=== PATIENT | female | born 1955 | race Caucasian/White ===

== ENCOUNTER 2016-04-25 10:10 | Outpatient (CLI) | payer MEDICARE, OTHER ==
[~2016-04-25 10:10] MED LIST: ACET-868 PO; ALLO100T PO; ASCO500T9 PO; ASPI-991 PO; CALC-15 PO; CARV25TA2 PO; CIPROFLOXACIN HCL PO; CYCL-343 PO; FERR-58 PO; FURO40TA5 PO; HYDR-4076 PO; INSU100I14 SQ; INSU100I19 SQ; ISON300T4 PO; LIDO30AD10 TP; METF10002 PO; ONDA4TAB8 SL; PANT40TA4 PO; POTA10TA15 PO; PRAM0.253 PO; PRED5TAB PO; RXVAN XX; SERT25TA5 PO; TRAM50TA PO; ZINC220C6 PO; ZOLP5TAB7 PO
== END 2016-04-25 23:59 ==
LOC: WOU 10:10
PROVIDERS: ATTEND Podiatrist Foot & Ankle Surgery
DX: E11.621 Type 2 diabetes mellitus with foot ulcer (principal); L97.422 Non-pressure chronic ulcer of left heel and midfoot with fat layer exposed; L08.89 Other specified local infections of the skin and subcutaneous tissue; B95.61 Methicillin susceptible Staphylococcus aureus infection as the cause of diseases classified elsewhere; Z87.891 Personal history of nicotine dependence; M06.9 Rheumatoid arthritis, unspecified; D46.9 Myelodysplastic syndrome, unspecified; R06.02 Shortness of breath; R07.9 Chest pain, unspecified; I25.10 Atherosclerotic heart disease of native coronary artery without angina pectoris; I11.0 Hypertensive heart disease with heart failure; I50.9 Heart failure, unspecified; Z95.1 Presence of aortocoronary bypass graft; Z79.899 Other long term (current) drug therapy; E78.5 Hyperlipidemia, unspecified
CPT/HCPCS: 11042; A6402

== ENCOUNTER 2016-04-25 11:31 | Emergency (ER) | payer MEDICARE, OTHER | END 2016-04-25 16:55 | disposition left against medical advice (07) | LOC: ER 11:33 | DX: Z53.21 Procedure and treatment not carried out due to patient leaving prior to being seen by health care provider (principal) | CPT/HCPCS: 87070-TC; 87075-TC; 87186-TC ==

== ENCOUNTER 2016-05-02 09:59 | Outpatient (CLI) | payer MEDICARE, OTHER ==
[2016-05-02] MEDS ORDERED: CIPR500T5 PO (16:39)
[2016-05-02] MEDS ORDERED: GUAI-177 PO (16:39)
[2016-05-02] MEDS ORDERED: METF500T4 PO (16:39)
[2016-05-02] MEDS ORDERED: SULF1TAB48 PO (16:39)
[2016-05-02] MEDS ORDERED: MULT-659 PO (16:39)
[2016-05-02] MEDS ORDERED: HYDR-3326 PO (16:39)
[2016-05-02] MEDS ORDERED: MAG30ORA PO (16:39)
[2016-05-02] MEDS ORDERED: CALC-108 PO (16:39)
[2016-05-02] MEDS ORDERED: INSU100V27 SQ (16:39)
[2016-05-02] MEDS ORDERED: ONDA-25 PO (16:39)
[2016-05-02] MEDS ORDERED: MAGN400O6 PO (16:39)
[2016-05-02] MEDS ORDERED: ASPI81TA2 PO (16:39)
== END 2016-05-02 23:59 ==
LOC: WOU 09:59
PROVIDERS: ATTEND Podiatrist Foot & Ankle Surgery
DX: E11.621 Type 2 diabetes mellitus with foot ulcer (principal); L97.422 Non-pressure chronic ulcer of left heel and midfoot with fat layer exposed; R60.0 Localized edema; B95.62 Methicillin resistant Staphylococcus aureus infection as the cause of diseases classified elsewhere; Z87.891 Personal history of nicotine dependence; E11.51 Type 2 diabetes mellitus with diabetic peripheral angiopathy without gangrene; Z95.1 Presence of aortocoronary bypass graft; E78.5 Hyperlipidemia, unspecified; R05 Cough; I11.0 Hypertensive heart disease with heart failure; I50.9 Heart failure, unspecified; D46.9 Myelodysplastic syndrome, unspecified; I25.10 Atherosclerotic heart disease of native coronary artery without angina pectoris; R06.02 Shortness of breath; L03.116 Cellulitis of left lower limb
CPT/HCPCS: 11042; A6402

== ENCOUNTER 2016-05-02 11:48 | Inpatient (IN) | payer MEDICARE, OTHER ==
[~2016-05-02] VITALS: Ht 170.2 cm; Wt 77.1 kg
[2016-05-02] MEDS ORDERED: IPRATROPIUM NEB FS 0.5 MG/2.5 ML AMPUL.NEB NEB ONE (14:30)
[2016-05-02] MEDS ORDERED: ALBUTEROL FS 2.5 MG/3 ML VIAL.NEB NEB ONE (14:30)
[2016-05-02 14:45] LABS: ANION GAP 10 (5-14); CALCIUM, SERUM 9.8 mg/dL (8.5-10.1); CARBON DIOXIDE 30 mmol/L (21-32); CHLORIDE 102 mmol/L (98-107); CREATININE 1.3 mg/dL (0.6-1.3); GFR 42 mL/min (>60); GLUCOSE 100 mg/dL (74-106); POTASSIUM 4.6 mmol/L (3.5-5.1); SODIUM SERUM 137 mmol/L (136-145); UREA NITROGEN, BLOOD 30 mg/dL (7-18)
[2016-05-02] MEDS ORDERED: ALBUTEROL FS 2.5 MG/3 ML VIAL.NEB ONE ×2 (14:46→15:42)
[2016-05-02 14:53] LABS: TROPONIN I < 0.017 ng/mL (0.00-0.056)
[2016-05-02 14:54] LABS: BASOPHILS % (AUTO) 0.3 % (0.0-2.0); DIFF TOTAL % 100 %; EOSINOPHILS # (AUTO) 0.1 /CMM (0.0-0.7); EOSINOPHILS % (AUTO) 1.2 % (0.0-6.0); HEMATOCRIT 33 % (33-45); HEMOGLOBIN 11.2 g/dL (11.5-14.8); LYMPHOCYTES # (AUTO) 1.4 /CMM (0.8-4.8); LYMPHOCYTES % (AUTO) 22.2 % (20.0-44.0); MEAN CORPUSCULAR HEMOGLOBIN 38 PG (26.0-33.0); MEAN CORPUSCULAR HGB CONC 34 g/dl (31.0-36.0); MEAN CORPUSCULAR VOLUME 113 fL (82-100); MONOCYTES # (AUTO) 0.6 /CMM (0.1-1.30); MONOCYTES % (AUTO) 8.9 % (2.0-12.0); NEUTROPHILS # (AUTO) 4.2 /CMM (1.8-8.9); NEUTROPHILS % (AUTO) 67.4 % (43.0-81.0); PLATELET COUNT (AUTO) 224 /CMM (150-450); RED BLOOD CELL COUNT(AUTO) 2.93 MIL/uL (4.0-5.2); WHITE BLOOD COUNT (AUTO) 6.2 K/uL (4.3-11.0)
[2016-05-02 14:57] LABS: ALANINE AMINOTRANSFERASE 24 U/L (12-78); ALBUMIN 3.7 g/dL (3.4-5.0); ASPARTATE AMINOTRANSFERASE 23 U/L (15-37); BILIRUBIN,DIRECT 0.1 mg/dL (0.0-0.2); BILIRUBIN,TOTAL 0.4 mg/dL (0.2-1.0); INDIRECT BILIRUBIN 0.3 mg/dL (0.0-1.1); TOTAL PROTEIN, SERUM 7.6 g/dL (6.4-8.2)
[2016-05-02] MEDS ORDERED: ALBUTEROL FS 2.5 MG/0.5 ML VIAL.NEB NEB ONE (15:30)
[2016-05-02] MEDS ORDERED: predniSONE 20 MG TABLET ONE (15:30)
[2016-05-02] MEDS ORDERED: predniSONE 20 MG TABLET PO ONE (15:30)
[2016-05-02] MEDS ORDERED: FUROSEMIDE 20 MG/2 ML VIAL ONE (16:29)
[2016-05-02] MEDS ORDERED: FUROSEMIDE 20 MG/2 ML VIAL IV ONE (16:30)
[2016-05-02 16:34] LABS: BAND % (MANUAL) 1 % (0.0-5.0); EOSINOPHILS % (MANUAL) 1 % (0-4); LYMPHOCYTES % (MANUAL) 21 % (16-48)
[2016-05-02 16:35] LABS: ANISOCYTOSIS 1+; PLATELET ESTIMATE ADEQUATE
[2016-05-02] MEDS ORDERED: SULF1TAB48 PO (16:39)
[2016-05-02] MEDS ORDERED: MAGN400O6 PO (16:39)
[2016-05-02] MEDS ORDERED: CIPR500T5 PO (16:39)
[2016-05-02] MEDS ORDERED: CALC-108 PO (16:39)
[2016-05-02] MEDS ORDERED: METF500T4 PO (16:39)
[2016-05-02] MEDS ORDERED: ONDA-25 PO (16:39)
[2016-05-02] MEDS ORDERED: INSU100V27 SQ (16:39)
[2016-05-02] MEDS ORDERED: ASPI81TA2 PO (16:39)
[2016-05-02] MEDS ORDERED: GUAI-177 PO (16:39)
[2016-05-02] MEDS ORDERED: MULT-659 PO (16:39)
[2016-05-02] MEDS ORDERED: MAG30ORA PO (16:39)
[2016-05-02] MEDS ORDERED: HYDR-3326 PO (16:39)
[2016-05-02] MEDS ORDERED: ACETAMINOPHEN 325 MG TABLET PO PRN (18:00)
[2016-05-02] MEDS: PANTOPRAZOLE 40 MG TABLET.DR PO SCH (18:00)
[2016-05-02] MEDS ORDERED: FUROSEMIDE 40 MG TABLET PO SCH (18:00)
[2016-05-02] MEDS ORDERED: CYCLOBENZAPRINE 10 MG TABLET PO PRN (18:00)
[2016-05-02] MEDS ORDERED: hydrALAZINE HCL 25 MG TABLET PO PRN (18:00)
[2016-05-02] MEDS ORDERED: MAG HYDROX/AL HYDROX/SIMETH 30 ML UDC PO PRN ×2 (18:00)
[2016-05-02] MEDS ORDERED: Z GUARD REMEDY 2 OZ OINT TP PRN (18:00)
[2016-05-02] MEDS ORDERED: ONDANSETRON HCL/PF 4 MG/2 ML VIAL IVP PRN (18:00)
[2016-05-02] MEDS ORDERED: PANTOPRAZOLE 40 MG TABLET.DR PO SCH (18:00)
[2016-05-02] MEDS ORDERED: ZOLPIDEM TARTRATE 5 MG TABLET PO PRN ×2 (18:00)
[2016-05-02] MEDS ORDERED: HYDROCODONE/APAP 5/325MG 1 EACH TABLET PO PRN (18:00)
[2016-05-02] MEDS ORDERED: MAGNESIUM HYDROXIDE 30 ML UDC PO PRN ×2 (18:00)
[2016-05-02 18:20] VITALS: BP 151/74
[2016-05-02] MEDS: BLOOD SUGAR DIAGNOSTIC 1 EACH STRIP IN SCH ×2 (18:30→22:18)
[2016-05-02] MEDS ORDERED: DEXTROSE 50%-WATER 50 ML DISP.SYRIN IV PRN (18:30)
[2016-05-02 20:00] VITALS: BP 144/80
[2016-05-02 20:12] VITALS: BP 144/80
[2016-05-02] MEDS: ZINC SULFATE 220 MG CAPSULE PO SCH (21:00)
[2016-05-02] MEDS: predniSONE 5 MG TABLET PO SCH (21:00)
[2016-05-02] MEDS: ASPIRIN 81 MG TAB.CHEW PO SCH (21:00)
[2016-05-02] MEDS: SERTRALINE HCL 25 MG TABLET PO SCH (21:00)
[2016-05-02] MEDS: POTASSIUM CHLORIDE 10 MEQ TABLET.SA PO SCH (21:00)
[2016-05-02] MEDS: FUROSEMIDE 40 MG/4 ML VIAL IV SCH ×2 (21:00→21:56)
[2016-05-02] MEDS: ALLOPURINOL 100 MG TABLET PO SCH (21:00)
[2016-05-02] MEDS: ISONIAZID (300 MG) 300 MG TABLET PO SCH (21:00)
[2016-05-02] MEDS: CARVEDILOL 12.5 MG TABLET PO SCH (21:53)
[2016-05-02] MEDS: PRAMIPEXOLE DI-HCL 0.25 MG TABLET PO SCH (21:55)
[2016-05-02] MEDS: HYDROCODONE/APAP 5/325MG 1 EACH TABLET PO PRN (22:12)
[2016-05-02] MEDS: *INSULIN REGULAR(HUMULIN R)HUM 100 UNIT/ML VIAL SQ PRN (22:20)
[2016-05-02] MEDS: INSULIN DETEMIR 100 UNIT/ML CARTRIDGE SQ SCH (22:25)
[2016-05-03] MEDS: ALBUTEROL FS 2.5 MG/0.5 ML VIAL.NEB NEB SCH ×6 (00:04→19:49)
[2016-05-03] MEDS: IPRATROPIUM NEB FS 0.5 MG/2.5 ML AMPUL.NEB NEB SCH ×6 (00:04→19:48)
[2016-05-03] MEDS: PANTOPRAZOLE 40 MG TABLET.DR PO SCH (06:24)
[2016-05-03] MEDS: PRAMIPEXOLE DI-HCL 0.25 MG TABLET PO SCH ×3 (06:24→21:11)
[2016-05-03] MEDS: BLOOD SUGAR DIAGNOSTIC 1 EACH STRIP IN SCH ×4 (06:24→21:39)
[2016-05-03] MEDS: INSULIN REGULAR, HUMAN 100 UNIT/ML 3 ML VIAL SQ PRN (06:31)
[2016-05-03 06:37] LABS: BASOPHILS % (AUTO) 0.3 % (0.0-2.0); DIFF TOTAL % 100 %; EOSINOPHILS % (AUTO) 0.1 % (0.0-6.0); HEMATOCRIT 31 % (33-45); HEMOGLOBIN 10.4 g/dL (11.5-14.8); LYMPHOCYTES % (AUTO) 17.4 % (20.0-44.0); MEAN CORPUSCULAR HEMOGLOBIN 38 PG (26.0-33.0); MEAN CORPUSCULAR HGB CONC 34 g/dl (31.0-36.0); MEAN CORPUSCULAR VOLUME 112 fL (82-100); MONOCYTES # (AUTO) 0.3 /CMM (0.1-1.30); MONOCYTES % (AUTO) 6.1 % (2.0-12.0); NEUTROPHILS # (AUTO) 4.2 /CMM (1.8-8.9); NEUTROPHILS % (AUTO) 76.1 % (43.0-81.0); PLATELET COUNT (AUTO) 187 /CMM (150-450); RED BLOOD CELL COUNT(AUTO) 2.73 MIL/uL (4.0-5.2); WHITE BLOOD COUNT (AUTO) 5.5 K/uL (4.3-11.0)
[2016-05-03 06:50] LABS: ALBUMIN 3.2 g/dL (3.4-5.0); BILIRUBIN,TOTAL 0.3 mg/dL (0.2-1.0); CALCIUM, SERUM 9.1 mg/dL (8.5-10.1); CREATININE 1.4 mg/dL (0.6-1.3); PHOSPHORUS 3.7 mg/dL (2.5-4.9); POTASSIUM 4.6 mmol/L (3.5-5.1); TOTAL PROTEIN, SERUM 6.9 g/dL (6.4-8.2)
[2016-05-03 08:00] VITALS: BP 136/66
[2016-05-03] MEDS ORDERED: LEVOFLOXACIN 500 MG /D5W 100ML 500 MG in PREMIX 1 EA IV SCH (08:00)
[2016-05-03] MEDS: INSULIN ASPART NOVOLOG 100 UNIT/ML CARTRIDGE SQ SCH ×3 (08:02→17:30)
[2016-05-03] MEDS: FUROSEMIDE 40 MG/4 ML VIAL IV SCH ×2 (08:34→17:11)
[2016-05-03] MEDS: ASPIRIN 81 MG TAB.CHEW PO SCH (08:38)
[2016-05-03] MEDS: predniSONE 5 MG TABLET PO SCH (08:38)
[2016-05-03] MEDS: ZINC SULFATE 220 MG CAPSULE PO SCH (08:38)
[2016-05-03] MEDS: CARVEDILOL 12.5 MG TABLET PO SCH ×2 (08:39→21:11)
[2016-05-03] MEDS: CALCIUM CARB 250MG /VITAMIN D 1 UDTAB PO SCH (08:40)
[2016-05-03] MEDS: SERTRALINE HCL 25 MG TABLET PO SCH (08:41)
[2016-05-03] MEDS: ISONIAZID (300 MG) 300 MG TABLET PO SCH (08:41)
[2016-05-03] MEDS: ASCORBIC ACID 500 MG TABLET PO SCH (08:42)
[2016-05-03] MEDS: ALLOPURINOL 100 MG TABLET PO SCH (08:42)
[2016-05-03] MEDS: POTASSIUM CHLORIDE 10 MEQ TABLET.SA PO SCH (08:42)
[2016-05-03] MEDS: MULTIVITAMINS,THERAPEUTIC 1 UDTAB TABLET PO SCH (08:42)
[2016-05-03] MEDS: FERROUS SULFATE (325 MG) 325 MG/TAB TABLET PO SCH (08:43)
[2016-05-03] MEDS ORDERED: IV SET PRIMARY PUMP SET 1 EA INFUS.SET MC ONE (08:48)
[2016-05-03] MEDS ORDERED: IV NS 0.9% 250 ML IV ONE (08:48)
[2016-05-03] MEDS ORDERED: SECONDARY IV SET 1 EA INFUS.SET MC ONE (08:48)
[2016-05-03] MEDS: METFORMIN 500 MG TABLET PO SCH ×2 (08:55→16:46)
[2016-05-03] MEDS ORDERED: LEVOFLOXACIN 500 MG /D5W 100ML 500 MG in PREMIX 1 EA IV ONE (09:00)
[2016-05-03] MEDS ORDERED: GUAIFENESIN LA 600 MG TABLET.SA PO PRN (09:00)
[2016-05-03] MEDS: INSULIN DETEMIR 100 UNIT/ML CARTRIDGE SQ SCH ×2 (09:00→21:56)
[2016-05-03 16:00] VITALS: BP 144/77
[2016-05-03 20:00] VITALS: BP 109/63
[2016-05-03] MEDS: *INSULIN REGULAR(HUMULIN R)HUM 100 UNIT/ML VIAL SQ PRN (21:53)
[2016-05-04] MEDS: IPRATROPIUM NEB FS 0.5 MG/2.5 ML AMPUL.NEB NEB SCH ×6 (00:12→23:22)
[2016-05-04] MEDS: ALBUTEROL FS 2.5 MG/0.5 ML VIAL.NEB NEB SCH ×6 (00:12→23:22)
[2016-05-04] MEDS: PRAMIPEXOLE DI-HCL 0.25 MG TABLET PO SCH ×3 (05:09→21:41)
[2016-05-04] MEDS: BLOOD SUGAR DIAGNOSTIC 1 EACH STRIP IN SCH ×4 (07:30→21:40)
[2016-05-04] MEDS: INSULIN ASPART NOVOLOG 100 UNIT/ML CARTRIDGE SQ SCH ×3 (07:30→17:18)
[2016-05-04 08:00] VITALS: BP 144/68
[2016-05-04] MEDS ORDERED: IV SET PRIMARY PUMP SET 1 EA INFUS.SET MC ONE (08:48)
[2016-05-04] MEDS: LEVOFLOXACIN 250 MG /D5W 50 ML 250 MG in PREMIX 1 EA IV SCH (08:54)
[2016-05-04] MEDS: ASPIRIN 81 MG TAB.CHEW PO SCH (08:58)
[2016-05-04] MEDS: SERTRALINE HCL 25 MG TABLET PO SCH (08:58)
[2016-05-04] MEDS: CALCIUM CARB 250MG /VITAMIN D 1 UDTAB PO SCH (08:59)
[2016-05-04] MEDS: MULTIVITAMINS,THERAPEUTIC 1 UDTAB TABLET PO SCH (08:59)
[2016-05-04] MEDS: predniSONE 5 MG TABLET PO SCH (09:00)
[2016-05-04] MEDS: ALLOPURINOL 100 MG TABLET PO SCH (09:00)
[2016-05-04] MEDS: METFORMIN 500 MG TABLET PO SCH ×2 (09:00→17:00)
[2016-05-04] MEDS: POTASSIUM CHLORIDE 10 MEQ TABLET.SA PO SCH (09:00)
[2016-05-04] MEDS: CARVEDILOL 12.5 MG TABLET PO SCH ×2 (09:01→21:41)
[2016-05-04] MEDS: ISONIAZID (300 MG) 300 MG TABLET PO SCH (09:02)
[2016-05-04] MEDS: PANTOPRAZOLE 40 MG TABLET.DR PO SCH (09:02)
[2016-05-04] MEDS: ZINC SULFATE 220 MG CAPSULE PO SCH (09:02)
[2016-05-04] MEDS: FERROUS SULFATE (325 MG) 325 MG/TAB TABLET PO SCH (09:02)
[2016-05-04] MEDS: ASCORBIC ACID 500 MG TABLET PO SCH (09:03)
[2016-05-04] MEDS: INSULIN DETEMIR 100 UNIT/ML CARTRIDGE SQ SCH ×2 (09:07→21:45)
[2016-05-04] MEDS: INSULIN REGULAR, HUMAN 100 UNIT/ML 3 ML VIAL SQ PRN (09:09)
[2016-05-04] MEDS: FUROSEMIDE 40 MG/4 ML VIAL IV SCH ×2 (09:46→17:20)
[2016-05-04 16:23] VITALS: BP 119/60
[2016-05-04 20:00] VITALS: BP 156/73
[2016-05-05] MEDS: HYDROCODONE/APAP 5/325MG 1 EACH TABLET PO PRN ×2 (00:46→17:21)
[2016-05-05] MEDS: IPRATROPIUM NEB FS 0.5 MG/2.5 ML AMPUL.NEB NEB SCH ×4 (03:09→16:21)
[2016-05-05] MEDS: ALBUTEROL FS 2.5 MG/0.5 ML VIAL.NEB NEB SCH ×4 (03:09→15:30)
[2016-05-05] MEDS: PRAMIPEXOLE DI-HCL 0.25 MG TABLET PO SCH ×2 (05:24→12:54)
[2016-05-05] MEDS: PANTOPRAZOLE 40 MG TABLET.DR PO SCH (06:34)
[2016-05-05] MEDS: BLOOD SUGAR DIAGNOSTIC 1 EACH STRIP IN SCH ×3 (06:34→17:07)
[2016-05-05] MEDS: INSULIN ASPART NOVOLOG 100 UNIT/ML CARTRIDGE SQ SCH ×3 (07:47→17:06)
[2016-05-05] MEDS: INSULIN REGULAR, HUMAN 100 UNIT/ML 3 ML VIAL SQ PRN (07:50)
[2016-05-05 08:00] VITALS: BP 115/67
[2016-05-05] MEDS: ZINC SULFATE 220 MG CAPSULE PO SCH (09:05)
[2016-05-05] MEDS: FERROUS SULFATE (325 MG) 325 MG/TAB TABLET PO SCH (09:05)
[2016-05-05] MEDS: ASCORBIC ACID 500 MG TABLET PO SCH (09:05)
[2016-05-05] MEDS: MULTIVITAMINS,THERAPEUTIC 1 UDTAB TABLET PO SCH (09:05)
[2016-05-05] MEDS: POTASSIUM CHLORIDE 10 MEQ TABLET.SA PO SCH (09:05)
[2016-05-05] MEDS: CALCIUM CARB 250MG /VITAMIN D 1 UDTAB PO SCH (09:05)
[2016-05-05] MEDS: SERTRALINE HCL 25 MG TABLET PO SCH (09:06)
[2016-05-05] MEDS: ALLOPURINOL 100 MG TABLET PO SCH (09:06)
[2016-05-05] MEDS: ASPIRIN 81 MG TAB.CHEW PO SCH (09:06)
[2016-05-05] MEDS: ISONIAZID (300 MG) 300 MG TABLET PO SCH (09:06)
[2016-05-05] MEDS: METFORMIN 500 MG TABLET PO SCH ×2 (09:06→16:42)
[2016-05-05] MEDS: predniSONE 5 MG TABLET PO SCH (09:06)
[2016-05-05] MEDS: CARVEDILOL 12.5 MG TABLET PO SCH (09:07)
[2016-05-05] MEDS: LEVOFLOXACIN 250 MG /D5W 50 ML 250 MG in PREMIX 1 EA IV SCH (09:07)
[2016-05-05] MEDS: FUROSEMIDE 40 MG/4 ML VIAL IV SCH ×2 (09:07→16:42)
[2016-05-05] MEDS: INSULIN DETEMIR 100 UNIT/ML CARTRIDGE SQ SCH (09:19)
[2016-05-05 18:44] VITALS: BP 116/76
== END 2016-05-05 17:45 | DRG 264 ==
LOC: ER 11:51 → MEDSG2 17:19
PROVIDERS: ADMIT Internal Medicine; ATTEND Internal Medicine
PROC: 0JBR0ZZ Excision of Left Foot Subcutaneous Tissue and Fascia, Open Approach (ICD-10-PCS; principal; 2016-05-05)
DX: I13.0 Hypertensive heart and chronic kidney disease with heart failure and stage 1 through stage 4 chronic kidney disease, or unspecified chronic kidney disease (principal); I50.33 Acute on chronic diastolic (congestive) heart failure; N17.0 Acute kidney failure with tubular necrosis; L97.429 Non-pressure chronic ulcer of left heel and midfoot with unspecified severity; J20.9 Acute bronchitis, unspecified; I25.10 Atherosclerotic heart disease of native coronary artery without angina pectoris; D46.9 Myelodysplastic syndrome, unspecified; E11.22 Type 2 diabetes mellitus with diabetic chronic kidney disease; D63.8 Anemia in other chronic diseases classified elsewhere; N18.3 Chronic kidney disease, stage 3 (moderate); E11.621 Type 2 diabetes mellitus with foot ulcer; E11.42 Type 2 diabetes mellitus with diabetic polyneuropathy; E11.51 Type 2 diabetes mellitus with diabetic peripheral angiopathy without gangrene; F32.9 Major depressive disorder, single episode, unspecified; M06.9 Rheumatoid arthritis, unspecified; M19.90 Unspecified osteoarthritis, unspecified site; Z87.891 Personal history of nicotine dependence; Z95.1 Presence of aortocoronary bypass graft; E78.5 Hyperlipidemia, unspecified; D63.0 Anemia in neoplastic disease; G89.4 Chronic pain syndrome; Z79.4 Long term (current) use of insulin; E11.65 Type 2 diabetes mellitus with hyperglycemia; G25.81 Restless legs syndrome
CPT/HCPCS: 36415; 71010-TC; 80048-TC; 80053-TC; 80061-TC; 80076-TC; 82962-TC; 83735-TC; 83880; 84100-TC; 84484-TC; 85025-TC; 87081-TC; A4216; A4606; A6402; J1815; J1940; J1956; J7050; J7512; Z7610

== ENCOUNTER 2016-05-13 10:24 | Outpatient (CLI) | payer MEDICARE, OTHER ==
[~2016-05-13 10:24] MED LIST changes: -ASPI-991 PO; +ASPI81TA2 PO; +CALC-108 PO; -CALC-15 PO; +CIPR500T5 PO; -CIPROFLOXACIN HCL PO; +GUAI-177 PO; +HYDR-3326 PO; +INSU100V27 SQ; -LIDO30AD10 TP; +MAG30ORA PO; +MAGN400O6 PO; -METF10002 PO; +METF500T4 PO; +MULT-659 PO; +ONDA-25 PO; -ONDA4TAB8 SL; -RXVAN XX; +SULF1TAB48 PO; -TRAM50TA PO
[2016-05-14] MEDS ORDERED: HYDR-3326 PO (13:16)
[2016-05-14] MEDS ORDERED: MULT-70 PO (13:16)
[2016-05-14] MEDS ORDERED: CALC-263 PO (13:16)
[2016-05-14] MEDS ORDERED: DEXT50DI5 IV (13:16)
[2016-05-14] MEDS ORDERED: ALBU6.7H IH (13:16)
== END 2016-05-13 23:59 | disposition home or self-care (01) ==
LOC: WOU 10:24
PROVIDERS: ATTEND Podiatrist Foot & Ankle Surgery
DX: E11.621 Type 2 diabetes mellitus with foot ulcer (principal); L97.523 Non-pressure chronic ulcer of other part of left foot with necrosis of muscle; B35.1 Tinea unguium; I25.10 Atherosclerotic heart disease of native coronary artery without angina pectoris; I11.0 Hypertensive heart disease with heart failure; I50.9 Heart failure, unspecified; Z95.1 Presence of aortocoronary bypass graft; A49.02 Methicillin resistant Staphylococcus aureus infection, unspecified site; E78.5 Hyperlipidemia, unspecified; D46.4 Refractory anemia, unspecified; Z89.421 Acquired absence of other right toe(s); L03.116 Cellulitis of left lower limb
CPT/HCPCS: 11043; 87070-TC; A6402; A6407

== ENCOUNTER 2016-05-14 09:38 | Inpatient (IN) | payer MEDICARE, OTHER ==
[~2016-05-14] VITALS: Ht 167.6 cm; Wt 68.0 kg
[2016-05-14 10:43] LABS: BASOPHILS # (AUTO) 0.2 /CMM (0.0-0.2); BASOPHILS % (AUTO) 1.8 % (0.0-2.0); DIFF TOTAL % 100 %; EOSINOPHILS # (AUTO) 0.1 /CMM (0.0-0.7); EOSINOPHILS % (AUTO) 0.6 % (0.0-6.0); HEMATOCRIT 34 % (33-45); HEMOGLOBIN 11.5 g/dL (11.5-14.8); LYMPHOCYTES # (AUTO) 0.8 /CMM (0.8-4.8); LYMPHOCYTES % (AUTO) 6.5 % (20.0-44.0); MEAN CORPUSCULAR HEMOGLOBIN 38 PG (26.0-33.0); MEAN CORPUSCULAR HGB CONC 34 g/dl (31.0-36.0); MEAN CORPUSCULAR VOLUME 114 fL (82-100); MONOCYTES # (AUTO) 0.9 /CMM (0.1-1.30); MONOCYTES % (AUTO) 6.8 % (2.0-12.0); NEUTROPHILS # (AUTO) 11.1 /CMM (1.8-8.9); NEUTROPHILS % (AUTO) 84.3 % (43.0-81.0); PLATELET COUNT (AUTO) 123 /CMM (150-450); RED BLOOD CELL COUNT(AUTO) 3.01 MIL/uL (4.0-5.2); WHITE BLOOD COUNT (AUTO) 13.1 K/uL (4.3-11.0)
[2016-05-14 10:51] LABS: CALCIUM, SERUM 9.3 mg/dL (8.5-10.1); CREATININE 1.3 mg/dL (0.6-1.3)
[2016-05-14 11:15] LABS: LACTIC ACID 0.9 mmol/L (0.4-2.0)
[2016-05-14 11:46] LABS: BAND % (MANUAL) 5 % (0.0-5.0); EOSINOPHILS % (MANUAL) 1 % (0-4); LYMPHOCYTES % (MANUAL) 10 % (16-48); PLATELET ESTIMATE DECREASED
[2016-05-14 11:47] LABS: ANISOCYTOSIS 2+
[2016-05-14] MEDS ORDERED: VANCOMYCIN 1 GM in IV D5W 250 ML IV ONE (12:30)
[2016-05-14] MEDS ORDERED: HYDROCODONE/APAP 5/325MG 1 EACH TABLET PO ONE (12:30)
[2016-05-14] MEDS ORDERED: IV SET PRIMARY PUMP SET 1 EA INFUS.SET MC ONE (12:35)
[2016-05-14] MEDS ORDERED: HYDROCODONE/APAP 5/325MG 1 EACH TABLET ONE (12:35)
[2016-05-14 13:00] VITALS: BP_SYST 123; BP_SYST 136; BP_DIAS 54; BP_DIAS 77
[2016-05-14] MEDS ORDERED: HYDR-3326 PO (13:16)
[2016-05-14] MEDS ORDERED: ALBU6.7H IH (13:16)
[2016-05-14] MEDS ORDERED: MULT-70 PO (13:16)
[2016-05-14] MEDS ORDERED: DEXT50DI5 IV (13:16)
[2016-05-14] MEDS ORDERED: CALC-263 PO (13:16)
[2016-05-14 14:10] VITALS: BP 123/53
[2016-05-14] MEDS: HYDROCODONE/APAP 10/325MG 1 EA TABLET PO PRN ×2 (15:47→21:08)
[2016-05-14 16:00] VITALS: BP 121/54
[2016-05-14] MEDS: SILVER SULFADIAZINE CREAM 25 GM TUBE TP SCH (17:17)
[2016-05-14] MEDS ORDERED: ACETAMINOPHEN 325 MG TABLET PO PRN (17:30)
[2016-05-14] MEDS ORDERED: ALBUTEROL SULFATE 8 GM HFA.AER.AD IH PRN (17:30)
[2016-05-14] MEDS ORDERED: ONDANSETRON HCL/PF 4 MG/2 ML VIAL IVP PRN (17:30)
[2016-05-14] MEDS ORDERED: ZOLPIDEM TARTRATE 5 MG TABLET PO PRN (17:30)
[2016-05-14] MEDS ORDERED: hydrALAZINE HCL 25 MG TABLET PO PRN (17:30)
[2016-05-14] MEDS ORDERED: FEE PK DOSING 1 MIN EA MC ONE (18:17)
[2016-05-14] MEDS: INSULIN ASPART NOVOLOG 100 UNIT/ML CARTRIDGE SQ SCH (18:22)
[2016-05-14] MEDS: BLOOD SUGAR DIAGNOSTIC 1 EACH STRIP IN SCH ×2 (18:23→23:49)
[2016-05-14 20:00] VITALS: BP 112/57
[2016-05-14] MEDS ORDERED: IV NS 0.9% 250 ML IV ONE (20:59)
[2016-05-14] MEDS ORDERED: SECONDARY IV SET 1 EA INFUS.SET MC ONE (21:00)
[2016-05-14] MEDS: MEROPENEM 500 MG in IV NS 0.9% 50 ML IV SCH (21:05)
[2016-05-14] MEDS: PRAMIPEXOLE DI-HCL 0.25 MG TABLET PO SCH (21:07)
[2016-05-14] MEDS: CARVEDILOL 12.5 MG TABLET PO SCH (21:08)
[2016-05-14] MEDS: INSULIN DETEMIR 100 UNIT/ML CARTRIDGE SQ SCH (23:49)
[2016-05-15] MEDS: *INSULIN REGULAR(HUMULIN R)HUM 100 UNIT/ML VIAL SQ PRN ×3 (00:55→21:29)
[2016-05-15] MEDS ORDERED: DEXTROSE 50%-WATER 50 ML DISP.SYRIN IV PRN (01:00)
[2016-05-15] MEDS: BLOOD SUGAR DIAGNOSTIC 1 EACH STRIP VI SCH ×5 (01:00→22:38)
[2016-05-15] MEDS ORDERED: SECONDARY IV SET 1 EA INFUS.SET MC ONE (05:29)
[2016-05-15] MEDS: VANCOMYCIN 1 GM in IV D5W 250 ML IV SCH ×2 (05:33→23:09)
[2016-05-15] MEDS: PRAMIPEXOLE DI-HCL 0.25 MG TABLET PO SCH ×3 (05:34→21:07)
[2016-05-15] MEDS: HYDROCODONE/APAP 10/325MG 1 EA TABLET PO PRN ×2 (05:42→21:08)
[2016-05-15 07:06] LABS: BILIRUBIN,TOTAL 0.6 mg/dL (0.2-1.0); CALCIUM, SERUM 9.3 mg/dL (8.5-10.1); CREATININE 1.4 mg/dL (0.6-1.3); PHOSPHORUS 3.8 mg/dL (2.5-4.9); POTASSIUM 4.2 mmol/L (3.5-5.1)
[2016-05-15 07:14] LABS: BASOPHILS % (AUTO) 0.2 % (0.0-2.0); DIFF TOTAL % 100 %; EOSINOPHILS # (AUTO) 0.1 /CMM (0.0-0.7); EOSINOPHILS % (AUTO) 1.2 % (0.0-6.0); HEMATOCRIT 32 % (33-45); HEMOGLOBIN 10.6 g/dL (11.5-14.8); LYMPHOCYTES % (AUTO) 10.2 % (20.0-44.0); MEAN CORPUSCULAR HEMOGLOBIN 38 PG (26.0-33.0); MEAN CORPUSCULAR HGB CONC 34 g/dl (31.0-36.0); MEAN CORPUSCULAR VOLUME 114 fL (82-100); MONOCYTES # (AUTO) 0.7 /CMM (0.1-1.30); NEUTROPHILS # (AUTO) 8.3 /CMM (1.8-8.9); NEUTROPHILS % (AUTO) 81.4 % (43.0-81.0); PLATELET COUNT (AUTO) 113 /CMM (150-450); WHITE BLOOD COUNT (AUTO) 10.2 K/uL (4.3-11.0)
[2016-05-15] MEDS: BLOOD SUGAR DIAGNOSTIC 1 EACH STRIP IN SCH (07:39)
[2016-05-15 08:00] VITALS: BP 122/65
[2016-05-15 08:05] LABS: THYROID STIMULATING HORMONE 2.212 uIU/mL (0.358-3.74)
[2016-05-15] MEDS: INSULIN ASPART NOVOLOG 100 UNIT/ML CARTRIDGE SQ SCH ×3 (08:18→16:59)
[2016-05-15] MEDS: ASPIRIN 81 MG TAB.CHEW PO SCH (08:45)
[2016-05-15] MEDS: CARVEDILOL 12.5 MG TABLET PO SCH ×2 (08:45→21:07)
[2016-05-15] MEDS: ZINC SULFATE 220 MG CAPSULE PO SCH (08:45)
[2016-05-15] MEDS: PANTOPRAZOLE 40 MG TABLET.DR PO SCH (08:45)
[2016-05-15] MEDS: FUROSEMIDE 40 MG TABLET PO SCH (08:45)
[2016-05-15] MEDS: CALCIUM CARB 250MG /VITAMIN D 1 UDTAB PO SCH (08:45)
[2016-05-15] MEDS: ALLOPURINOL 100 MG TABLET PO SCH (08:45)
[2016-05-15] MEDS: MULTIVITAMINS,THERAPEUTIC 1 UDTAB TABLET PO SCH (08:46)
[2016-05-15] MEDS: predniSONE 5 MG TABLET PO SCH (08:46)
[2016-05-15] MEDS: SERTRALINE HCL 25 MG TABLET PO SCH (08:46)
[2016-05-15] MEDS: POTASSIUM CHLORIDE 10 MEQ TABLET.SA PO SCH (08:46)
[2016-05-15] MEDS: ASCORBIC ACID 500 MG TABLET PO SCH (08:46)
[2016-05-15] MEDS: ISONIAZID (300 MG) 300 MG TABLET PO SCH (08:54)
[2016-05-15] MEDS: FERROUS SULFATE (325 MG) 325 MG/TAB TABLET PO SCH (08:54)
[2016-05-15] MEDS: INSULIN DETEMIR 100 UNIT/ML CARTRIDGE SQ SCH ×2 (08:56→21:29)
[2016-05-15] MEDS: MEROPENEM 500 MG in IV NS 0.9% 50 ML IV SCH ×2 (09:23→21:06)
[2016-05-15] MEDS: DAKINS QUARTER STRENGTH (0.125%) 480 ML BOTTLE TOP SCH (13:59)
[2016-05-15] MEDS: SILVER SULFADIAZINE CREAM 25 GM TUBE TP SCH ×2 (14:00→17:35)
[2016-05-15 16:00] VITALS: BP 135/57
[2016-05-15 20:00] VITALS: BP 113/61
[2016-05-15] MEDS ORDERED: IV NS 0.9% 250 ML IV ONE (21:09)
[2016-05-16] MEDS: PRAMIPEXOLE DI-HCL 0.25 MG TABLET PO SCH ×3 (05:00→20:51)
[2016-05-16] MEDS: BLOOD SUGAR DIAGNOSTIC 1 EACH STRIP VI SCH ×4 (06:39→21:02)
[2016-05-16] MEDS ORDERED: MIDAZOLAM HCL 2 MG/2ML VIAL ONE (07:56)
[2016-05-16] MEDS ORDERED: FENTANYL PF 100MCG/2ML AMPUL ONE (07:57)
[2016-05-16 08:00] VITALS: BP 149/73
[2016-05-16] MEDS ORDERED: HYDROMORPHONE 1 MG/1 ML DISP.SYRIN ONE (08:47)
[2016-05-16] MEDS: INSULIN DETEMIR 100 UNIT/ML CARTRIDGE SQ SCH ×2 (09:00→22:31)
[2016-05-16] MEDS ORDERED: LIDOCAINE HCL/PF 1% 30 ML SDV ONE (09:33)
[2016-05-16] MEDS: INSULIN ASPART NOVOLOG 100 UNIT/ML CARTRIDGE SQ SCH ×3 (10:17→17:30)
[2016-05-16] MEDS: POTASSIUM CHLORIDE 10 MEQ TABLET.SA PO SCH (10:51)
[2016-05-16] MEDS: ASCORBIC ACID 500 MG TABLET PO SCH (10:51)
[2016-05-16] MEDS: ISONIAZID (300 MG) 300 MG TABLET PO SCH (10:52)
[2016-05-16] MEDS: CYCLOBENZAPRINE 10 MG TABLET PO PRN (10:52)
[2016-05-16] MEDS: FUROSEMIDE 40 MG TABLET PO SCH (10:52)
[2016-05-16] MEDS: SERTRALINE HCL 25 MG TABLET PO SCH (10:53)
[2016-05-16] MEDS: HYDROCODONE/APAP 10/325MG 1 EA TABLET PO PRN ×2 (10:53→20:51)
[2016-05-16] MEDS: ALLOPURINOL 100 MG TABLET PO SCH (10:54)
[2016-05-16] MEDS: FERROUS SULFATE (325 MG) 325 MG/TAB TABLET PO SCH (10:56)
[2016-05-16] MEDS: predniSONE 5 MG TABLET PO SCH (10:56)
[2016-05-16] MEDS: CALCIUM CARB 250MG /VITAMIN D 1 UDTAB PO SCH (10:56)
[2016-05-16] MEDS: PANTOPRAZOLE 40 MG TABLET.DR PO SCH (10:57)
[2016-05-16] MEDS: ASPIRIN 81 MG TAB.CHEW PO SCH (10:57)
[2016-05-16] MEDS: MULTIVITAMINS,THERAPEUTIC 1 UDTAB TABLET PO SCH (10:57)
[2016-05-16 10:59] LABS: BASOPHILS % (AUTO) 0.4 % (0.0-2.0); DIFF TOTAL % 100 %; EOSINOPHILS # (AUTO) 0.2 /CMM (0.0-0.7); EOSINOPHILS % (AUTO) 1.9 % (0.0-6.0); HEMATOCRIT 30 % (33-45); HEMOGLOBIN 9.9 g/dL (11.5-14.8); LYMPHOCYTES # (AUTO) 1.1 /CMM (0.8-4.8); LYMPHOCYTES % (AUTO) 13.5 % (20.0-44.0); MEAN CORPUSCULAR HEMOGLOBIN 38 PG (26.0-33.0); MEAN CORPUSCULAR HGB CONC 33 g/dl (31.0-36.0); MEAN CORPUSCULAR VOLUME 114 fL (82-100); MONOCYTES # (AUTO) 0.6 /CMM (0.1-1.30); MONOCYTES % (AUTO) 7.3 % (2.0-12.0); NEUTROPHILS # (AUTO) 6.2 /CMM (1.8-8.9); NEUTROPHILS % (AUTO) 76.9 % (43.0-81.0); PLATELET COUNT (AUTO) 118 /CMM (150-450); RED BLOOD CELL COUNT(AUTO) 2.64 MIL/uL (4.0-5.2); WHITE BLOOD COUNT (AUTO) 8.1 K/uL (4.3-11.0)
[2016-05-16] MEDS: CARVEDILOL 12.5 MG TABLET PO SCH ×2 (10:59→20:51)
[2016-05-16] MEDS: SILVER SULFADIAZINE CREAM 25 GM TUBE TP SCH ×2 (11:00→17:00)
[2016-05-16] MEDS: DAKINS QUARTER STRENGTH (0.125%) 480 ML BOTTLE TOP SCH (11:01)
[2016-05-16] MEDS: ZINC SULFATE 220 MG CAPSULE PO SCH (11:02)
[2016-05-16 11:10] LABS: CREATININE 1.2 mg/dL (0.6-1.3); POTASSIUM 4.4 mmol/L (3.5-5.1)
[2016-05-16 11:57] LABS: INR 0.94 (0.87-1.13); PROTHROMBIN TIME 10.2 SECS (9.5-12.7)
[2016-05-16] MEDS: MEROPENEM 500 MG in IV NS 0.9% 50 ML IV SCH ×2 (13:07→20:50)
[2016-05-16] MEDS ORDERED: ANESTHESIA TRAY IN PYXIS 1 EA TRAY MC ONE (14:33)
[2016-05-16] MEDS: VANCOMYCIN 1 GM in IV D5W 250 ML IV SCH (17:00)
[2016-05-16] MEDS: *INSULIN REGULAR(HUMULIN R)HUM 100 UNIT/ML VIAL SQ PRN ×2 (17:40→22:32)
[2016-05-16 20:00] VITALS: BP 135/67
[2016-05-17] MEDS: PRAMIPEXOLE DI-HCL 0.25 MG TABLET PO SCH ×3 (04:27→21:04)
[2016-05-17] MEDS: HYDROCODONE/APAP 5/325MG 1 EACH TABLET PO PRN ×2 (06:53→15:52)
[2016-05-17] MEDS: BLOOD SUGAR DIAGNOSTIC 1 EACH STRIP VI SCH ×4 (06:55→21:06)
[2016-05-17 07:04] LABS: BASOPHILS % (AUTO) 0.2 % (0.0-2.0); DIFF TOTAL % 100 %; EOSINOPHILS # (AUTO) 0.1 /CMM (0.0-0.7); EOSINOPHILS % (AUTO) 1.4 % (0.0-6.0); HEMATOCRIT 30 % (33-45); HEMOGLOBIN 10.1 g/dL (11.5-14.8); LYMPHOCYTES # (AUTO) 1.2 /CMM (0.8-4.8); LYMPHOCYTES % (AUTO) 17.4 % (20.0-44.0); MEAN CORPUSCULAR HEMOGLOBIN 39 PG (26.0-33.0); MEAN CORPUSCULAR HGB CONC 34 g/dl (31.0-36.0); MEAN CORPUSCULAR VOLUME 114 fL (82-100); MONOCYTES # (AUTO) 0.6 /CMM (0.1-1.30); MONOCYTES % (AUTO) 8.3 % (2.0-12.0); NEUTROPHILS # (AUTO) 4.8 /CMM (1.8-8.9); NEUTROPHILS % (AUTO) 72.7 % (43.0-81.0); PLATELET COUNT (AUTO) 128 /CMM (150-450); RED BLOOD CELL COUNT(AUTO) 2.61 MIL/uL (4.0-5.2); WHITE BLOOD COUNT (AUTO) 6.6 K/uL (4.3-11.0)
[2016-05-17 07:50] LABS: CALCIUM, SERUM 9.1 mg/dL (8.5-10.1); CREATININE 1.3 mg/dL (0.6-1.3); PHOSPHORUS 3.8 mg/dL (2.5-4.9); POTASSIUM 4.4 mmol/L (3.5-5.1)
[2016-05-17 08:00] VITALS: BP 127/71
[2016-05-17 08:06] LABS: ANISOCYTOSIS 2+; BAND % (MANUAL) 1 % (0.0-5.0); EOSINOPHILS % (MANUAL) 1 % (0-4); LYMPHOCYTES % (MANUAL) 23 % (16-48); PLATELET ESTIMATE DECREASED
[2016-05-17] MEDS: ISONIAZID (300 MG) 300 MG TABLET PO SCH (08:15)
[2016-05-17] MEDS: ZINC SULFATE 220 MG CAPSULE PO SCH (08:15)
[2016-05-17] MEDS: SERTRALINE HCL 25 MG TABLET PO SCH (08:15)
[2016-05-17] MEDS: FUROSEMIDE 40 MG TABLET PO SCH (08:15)
[2016-05-17] MEDS: ASCORBIC ACID 500 MG TABLET PO SCH (08:16)
[2016-05-17] MEDS: PANTOPRAZOLE 40 MG TABLET.DR PO SCH (08:16)
[2016-05-17] MEDS: CALCIUM CARB 250MG /VITAMIN D 1 UDTAB PO SCH (08:16)
[2016-05-17] MEDS: ASPIRIN 81 MG TAB.CHEW PO SCH (08:16)
[2016-05-17] MEDS: ALLOPURINOL 100 MG TABLET PO SCH (08:16)
[2016-05-17] MEDS: FERROUS SULFATE (325 MG) 325 MG/TAB TABLET PO SCH (08:16)
[2016-05-17] MEDS: MULTIVITAMINS,THERAPEUTIC 1 UDTAB TABLET PO SCH (08:16)
[2016-05-17] MEDS: POTASSIUM CHLORIDE 10 MEQ TABLET.SA PO SCH (08:16)
[2016-05-17] MEDS: CARVEDILOL 12.5 MG TABLET PO SCH ×2 (08:17→21:04)
[2016-05-17] MEDS: INSULIN ASPART NOVOLOG 100 UNIT/ML CARTRIDGE SQ SCH ×3 (08:22→17:29)
[2016-05-17] MEDS: INSULIN REGULAR, HUMAN 100 UNIT/ML 3 ML VIAL SQ PRN ×2 (08:32→12:06)
[2016-05-17] MEDS: MEROPENEM 500 MG in IV NS 0.9% 50 ML IV SCH ×2 (09:08→21:03)
[2016-05-17] MEDS: predniSONE 5 MG TABLET PO SCH (09:22)
[2016-05-17] MEDS: INSULIN DETEMIR 100 UNIT/ML CARTRIDGE SQ SCH ×2 (09:22→21:08)
[2016-05-17] MEDS: SILVER SULFADIAZINE CREAM 25 GM TUBE TP SCH ×2 (10:32→17:28)
[2016-05-17] MEDS: DAKINS QUARTER STRENGTH (0.125%) 480 ML BOTTLE TOP SCH (10:33)
[2016-05-17] MEDS: VANCOMYCIN 1 GM in IV D5W 250 ML IV SCH (14:19)
[2016-05-17 16:00] VITALS: BP 129/58
[2016-05-17 20:00] VITALS: BP 156/74
[2016-05-17] MEDS ORDERED: IV NS 0.9% 250 ML IV ONE (20:57)
[2016-05-17] MEDS: *INSULIN REGULAR(HUMULIN R)HUM 100 UNIT/ML VIAL SQ PRN (21:09)
[2016-05-17] MEDS: HYDROCODONE/APAP 10/325MG 1 EA TABLET PO PRN (22:19)
[2016-05-18] MEDS: PRAMIPEXOLE DI-HCL 0.25 MG TABLET PO SCH ×3 (05:04→21:27)
[2016-05-18] MEDS: BLOOD SUGAR DIAGNOSTIC 1 EACH STRIP VI SCH ×4 (06:31→21:36)
[2016-05-18] MEDS: INSULIN ASPART NOVOLOG 100 UNIT/ML CARTRIDGE SQ SCH ×3 (07:30→17:03)
[2016-05-18 08:00] VITALS: BP 129/70
[2016-05-18] MEDS: MEROPENEM 500 MG in IV NS 0.9% 50 ML IV SCH ×2 (08:33→21:30)
[2016-05-18] MEDS: ASPIRIN 81 MG TAB.CHEW PO SCH (08:34)
[2016-05-18] MEDS: ASCORBIC ACID 500 MG TABLET PO SCH (08:34)
[2016-05-18] MEDS: predniSONE 5 MG TABLET PO SCH (08:34)
[2016-05-18] MEDS: ISONIAZID (300 MG) 300 MG TABLET PO SCH (08:34)
[2016-05-18] MEDS: POTASSIUM CHLORIDE 10 MEQ TABLET.SA PO SCH (08:34)
[2016-05-18] MEDS: ALLOPURINOL 100 MG TABLET PO SCH (08:34)
[2016-05-18] MEDS: SERTRALINE HCL 25 MG TABLET PO SCH (08:34)
[2016-05-18] MEDS: MULTIVITAMINS,THERAPEUTIC 1 UDTAB TABLET PO SCH (08:35)
[2016-05-18] MEDS: FERROUS SULFATE (325 MG) 325 MG/TAB TABLET PO SCH (08:35)
[2016-05-18] MEDS: ZINC SULFATE 220 MG CAPSULE PO SCH (08:35)
[2016-05-18] MEDS: PANTOPRAZOLE 40 MG TABLET.DR PO SCH (08:35)
[2016-05-18] MEDS: FUROSEMIDE 40 MG TABLET PO SCH (08:35)
[2016-05-18] MEDS: CARVEDILOL 12.5 MG TABLET PO SCH ×2 (08:35→21:27)
[2016-05-18] MEDS: CALCIUM CARB 250MG /VITAMIN D 1 UDTAB PO SCH (08:35)
[2016-05-18] MEDS: INSULIN DETEMIR 100 UNIT/ML CARTRIDGE SQ SCH ×2 (08:36→21:36)
[2016-05-18] MEDS: DAKINS QUARTER STRENGTH (0.125%) 480 ML BOTTLE TOP SCH (08:37)
[2016-05-18 08:38] LABS: CALCIUM, SERUM 9.1 mg/dL (8.5-10.1); CREATININE 1.2 mg/dL (0.6-1.3); POTASSIUM 4.4 mmol/L (3.5-5.1)
[2016-05-18] MEDS: SILVER SULFADIAZINE CREAM 25 GM TUBE TP SCH ×2 (08:38→17:02)
[2016-05-18] MEDS: INSULIN REGULAR, HUMAN 100 UNIT/ML 3 ML VIAL SQ PRN (11:25)
[2016-05-18] MEDS: VANCOMYCIN 1 GM in IV D5W 250 ML IV SCH (13:31)
[2016-05-18 16:00] VITALS: BP_SYST 151; BP_DIAS 72; BP_DIAS 81
[2016-05-18] MEDS: HYDROCODONE/APAP 5/325MG 1 EACH TABLET PO PRN ×2 (17:10→21:28)
[2016-05-18 20:00] VITALS: BP 134/62
[2016-05-18] MEDS: *INSULIN REGULAR(HUMULIN R)HUM 100 UNIT/ML VIAL SQ PRN (21:37)
[2016-05-19] MEDS: PRAMIPEXOLE DI-HCL 0.25 MG TABLET PO SCH ×3 (06:17→21:26)
[2016-05-19] MEDS: BLOOD SUGAR DIAGNOSTIC 1 EACH STRIP VI SCH ×4 (06:20→21:26)
[2016-05-19] MEDS: INSULIN REGULAR, HUMAN 100 UNIT/ML 3 ML VIAL SQ PRN ×2 (06:21→12:26)
[2016-05-19] MEDS: HYDROCODONE/APAP 10/325MG 1 EA TABLET PO PRN ×3 (06:23→23:56)
[2016-05-19 07:36] LABS: CALCIUM, SERUM 9.2 mg/dL (8.5-10.1); CREATININE 1.1 mg/dL (0.6-1.3); POTASSIUM 4.4 mmol/L (3.5-5.1)
[2016-05-19 08:00] VITALS: BP 144/69
[2016-05-19] MEDS: INSULIN ASPART NOVOLOG 100 UNIT/ML CARTRIDGE SQ SCH ×3 (08:17→17:30)
[2016-05-19] MEDS: INSULIN DETEMIR 100 UNIT/ML CARTRIDGE SQ SCH ×2 (08:18→21:42)
[2016-05-19] MEDS: SERTRALINE HCL 25 MG TABLET PO SCH (08:28)
[2016-05-19] MEDS: CALCIUM CARB 250MG /VITAMIN D 1 UDTAB PO SCH (08:28)
[2016-05-19] MEDS: predniSONE 5 MG TABLET PO SCH (08:29)
[2016-05-19] MEDS: CARVEDILOL 12.5 MG TABLET PO SCH ×2 (08:29→21:25)
[2016-05-19] MEDS: FUROSEMIDE 40 MG TABLET PO SCH (08:29)
[2016-05-19] MEDS: FERROUS SULFATE (325 MG) 325 MG/TAB TABLET PO SCH (08:29)
[2016-05-19] MEDS: POTASSIUM CHLORIDE 10 MEQ TABLET.SA PO SCH (08:29)
[2016-05-19] MEDS: ZINC SULFATE 220 MG CAPSULE PO SCH (08:29)
[2016-05-19] MEDS: ASPIRIN 81 MG TAB.CHEW PO SCH (08:29)
[2016-05-19] MEDS: ALLOPURINOL 100 MG TABLET PO SCH (08:29)
[2016-05-19] MEDS: PANTOPRAZOLE 40 MG TABLET.DR PO SCH (08:29)
[2016-05-19] MEDS: ISONIAZID (300 MG) 300 MG TABLET PO SCH (08:30)
[2016-05-19] MEDS: MULTIVITAMINS,THERAPEUTIC 1 UDTAB TABLET PO SCH (08:30)
[2016-05-19] MEDS: ASCORBIC ACID 500 MG TABLET PO SCH (08:30)
[2016-05-19] MEDS: SILVER SULFADIAZINE CREAM 25 GM TUBE TP SCH ×2 (09:57→18:16)
[2016-05-19] MEDS: DAKINS QUARTER STRENGTH (0.125%) 480 ML BOTTLE TOP SCH (09:58)
[2016-05-19] MEDS: MEROPENEM 500 MG in IV NS 0.9% 50 ML IV SCH (10:02)
[2016-05-19] MEDS: VANCOMYCIN 1 GM in IV D5W 250 ML IV SCH (13:29)
[2016-05-19 16:00] VITALS: BP 115/53
[2016-05-19 20:00] VITALS: BP 140/60
[2016-05-19] MEDS: RIFAMPIN 300 MG CAPSULE PO SCH (20:24)
[2016-05-20] MEDS: *INSULIN REGULAR(HUMULIN R)HUM 100 UNIT/ML VIAL SQ PRN (04:30)
[2016-05-20] MEDS: PRAMIPEXOLE DI-HCL 0.25 MG TABLET PO SCH ×3 (05:37→21:22)
[2016-05-20] MEDS: BLOOD SUGAR DIAGNOSTIC 1 EACH STRIP VI SCH ×4 (06:38→22:45)
[2016-05-20] MEDS: INSULIN ASPART NOVOLOG 100 UNIT/ML CARTRIDGE SQ SCH ×3 (06:41→17:15)
[2016-05-20] MEDS: PANTOPRAZOLE 40 MG TABLET.DR PO SCH (06:42)
[2016-05-20 07:06] LABS: BASOPHILS % (AUTO) 0.3 % (0.0-2.0); DIFF TOTAL % 100 %; EOSINOPHILS # (AUTO) 0.2 /CMM (0.0-0.7); EOSINOPHILS % (AUTO) 2.8 % (0.0-6.0); HEMATOCRIT 31 % (33-45); HEMOGLOBIN 10.6 g/dL (11.5-14.8); LYMPHOCYTES # (AUTO) 1.7 /CMM (0.8-4.8); LYMPHOCYTES % (AUTO) 26.2 % (20.0-44.0); MEAN CORPUSCULAR HEMOGLOBIN 39 PG (26.0-33.0); MEAN CORPUSCULAR HGB CONC 35 g/dl (31.0-36.0); MEAN CORPUSCULAR VOLUME 113 fL (82-100); MONOCYTES # (AUTO) 0.5 /CMM (0.1-1.30); MONOCYTES % (AUTO) 7.2 % (2.0-12.0); NEUTROPHILS % (AUTO) 63.5 % (43.0-81.0); PLATELET COUNT (AUTO) 167 /CMM (150-450); RED BLOOD CELL COUNT(AUTO) 2.71 MIL/uL (4.0-5.2); WHITE BLOOD COUNT (AUTO) 6.3 K/uL (4.3-11.0)
[2016-05-20 07:11] LABS: CALCIUM, SERUM 9.4 mg/dL (8.5-10.1); CREATININE 1.1 mg/dL (0.6-1.3); PHOSPHORUS 3.1 mg/dL (2.5-4.9); POTASSIUM 4.2 mmol/L (3.5-5.1)
[2016-05-20 08:00] VITALS: BP 119/65
[2016-05-20] MEDS: CARVEDILOL 12.5 MG TABLET PO SCH ×2 (08:17→21:23)
[2016-05-20] MEDS: FERROUS SULFATE (325 MG) 325 MG/TAB TABLET PO SCH (08:17)
[2016-05-20] MEDS: SERTRALINE HCL 25 MG TABLET PO SCH (08:17)
[2016-05-20] MEDS: POTASSIUM CHLORIDE 10 MEQ TABLET.SA PO SCH (08:17)
[2016-05-20] MEDS: FUROSEMIDE 40 MG TABLET PO SCH (08:17)
[2016-05-20] MEDS: ISONIAZID (300 MG) 300 MG TABLET PO SCH (08:18)
[2016-05-20] MEDS: predniSONE 5 MG TABLET PO SCH (08:18)
[2016-05-20] MEDS: RIFAMPIN 300 MG CAPSULE PO SCH (08:18)
[2016-05-20] MEDS: ALLOPURINOL 100 MG TABLET PO SCH (08:18)
[2016-05-20] MEDS: ASCORBIC ACID 500 MG TABLET PO SCH (08:18)
[2016-05-20] MEDS: ASPIRIN 81 MG TAB.CHEW PO SCH (08:18)
[2016-05-20] MEDS: MULTIVITAMINS,THERAPEUTIC 1 UDTAB TABLET PO SCH (08:18)
[2016-05-20] MEDS: ZINC SULFATE 220 MG CAPSULE PO SCH (08:18)
[2016-05-20] MEDS: CALCIUM CARB 250MG /VITAMIN D 1 UDTAB PO SCH (08:18)
[2016-05-20] MEDS: INSULIN DETEMIR 100 UNIT/ML CARTRIDGE SQ SCH ×2 (08:21→22:44)
[2016-05-20] MEDS: DAKINS QUARTER STRENGTH (0.125%) 480 ML BOTTLE TOP SCH (08:28)
[2016-05-20] MEDS: SILVER SULFADIAZINE CREAM 25 GM TUBE TP SCH ×2 (08:29→16:35)
[2016-05-20] MEDS: INSULIN REGULAR, HUMAN 100 UNIT/ML 3 ML VIAL SQ PRN ×2 (11:50→22:47)
[2016-05-20] MEDS: VANCOMYCIN 1 GM in IV D5W 250 ML IV SCH (13:01)
[2016-05-20 16:00] VITALS: BP 141/70
[2016-05-20 20:00] VITALS: BP 124/61
[2016-05-20] MEDS: HYDROCODONE/APAP 5/325MG 1 EACH TABLET PO PRN (23:17)
[2016-05-21] MEDS: PRAMIPEXOLE DI-HCL 0.25 MG TABLET PO SCH ×2 (06:42→12:51)
[2016-05-21] MEDS: BLOOD SUGAR DIAGNOSTIC 1 EACH STRIP VI SCH ×3 (06:43→17:25)
[2016-05-21] MEDS: PANTOPRAZOLE 40 MG TABLET.DR PO SCH (06:47)
[2016-05-21 08:00] VITALS: BP 140/70
[2016-05-21] MEDS: INSULIN ASPART NOVOLOG 100 UNIT/ML CARTRIDGE SQ SCH ×3 (08:09→17:42)
[2016-05-21] MEDS: INSULIN REGULAR, HUMAN 100 UNIT/ML 3 ML VIAL SQ PRN ×2 (08:10→17:41)
[2016-05-21] MEDS: SILVER SULFADIAZINE CREAM 25 GM TUBE TP SCH ×2 (09:00→16:23)
[2016-05-21] MEDS: DAKINS QUARTER STRENGTH (0.125%) 480 ML BOTTLE TOP SCH (09:00)
[2016-05-21] MEDS: INSULIN DETEMIR 100 UNIT/ML CARTRIDGE SQ SCH (09:19)
[2016-05-21] MEDS: RIFAMPIN 300 MG CAPSULE PO SCH (09:21)
[2016-05-21] MEDS: MULTIVITAMINS,THERAPEUTIC 1 UDTAB TABLET PO SCH (09:21)
[2016-05-21] MEDS: ALLOPURINOL 100 MG TABLET PO SCH (09:21)
[2016-05-21] MEDS: SERTRALINE HCL 25 MG TABLET PO SCH (09:21)
[2016-05-21] MEDS: FERROUS SULFATE (325 MG) 325 MG/TAB TABLET PO SCH (09:22)
[2016-05-21] MEDS: ISONIAZID (300 MG) 300 MG TABLET PO SCH (09:22)
[2016-05-21] MEDS: FUROSEMIDE 40 MG TABLET PO SCH (09:22)
[2016-05-21] MEDS: CALCIUM CARB 250MG /VITAMIN D 1 UDTAB PO SCH (09:22)
[2016-05-21] MEDS: ASPIRIN 81 MG TAB.CHEW PO SCH (09:22)
[2016-05-21] MEDS: POTASSIUM CHLORIDE 10 MEQ TABLET.SA PO SCH (09:22)
[2016-05-21] MEDS: CARVEDILOL 12.5 MG TABLET PO SCH (09:23)
[2016-05-21] MEDS: predniSONE 5 MG TABLET PO SCH (09:23)
[2016-05-21] MEDS: ZINC SULFATE 220 MG CAPSULE PO SCH (09:23)
[2016-05-21] MEDS: ASCORBIC ACID 500 MG TABLET PO SCH (09:23)
[2016-05-21 10:37] LABS: CALCIUM, SERUM 9.5 mg/dL (8.5-10.1); CREATININE 1.1 mg/dL (0.6-1.3)
[2016-05-21] MEDS: VANCOMYCIN 1 GM in IV D5W 250 ML IV SCH (12:51)
[2016-05-21] MEDS: HYDROCODONE/APAP 10/325MG 1 EA TABLET PO PRN ×2 (13:28→18:54)
[2016-05-21 16:00] VITALS: BP 146/72
[2016-05-21] MEDS: CYCLOBENZAPRINE 10 MG TABLET PO PRN (18:59)
[2016-05-22] MEDS ORDERED: VANCOMYCIN 0.75 GM in IV D5W 250 ML IV SCH (13:00)
== END 2016-05-21 19:35 | DRG 570 ==
LOC: ER 09:42 → MED 13:12
PROVIDERS: ADMIT Nurse Practitioner Acute Care; ATTEND Nurse Practitioner Acute Care
PROC: 0JBR0ZZ Excision of Left Foot Subcutaneous Tissue and Fascia, Open Approach (ICD-10-PCS; 2016-05-16)
PROC: 0H9NXZZ Drainage of Left Foot Skin, External Approach (ICD-10-PCS; principal; 2016-05-16 08:13)
DX: L03.116 Cellulitis of left lower limb (principal); I50.33 Acute on chronic diastolic (congestive) heart failure; I13.0 Hypertensive heart and chronic kidney disease with heart failure and stage 1 through stage 4 chronic kidney disease, or unspecified chronic kidney disease; F11.20 Opioid dependence, uncomplicated; L02.612 Cutaneous abscess of left foot; L97.429 Non-pressure chronic ulcer of left heel and midfoot with unspecified severity; D69.6 Thrombocytopenia, unspecified; D75.89 Other specified diseases of blood and blood-forming organs; D46.9 Myelodysplastic syndrome, unspecified; E10.621 Type 1 diabetes mellitus with foot ulcer; E10.51 Type 1 diabetes mellitus with diabetic peripheral angiopathy without gangrene; E10.65 Type 1 diabetes mellitus with hyperglycemia; L97.529 Non-pressure chronic ulcer of other part of left foot with unspecified severity; G62.9 Polyneuropathy, unspecified; I25.10 Atherosclerotic heart disease of native coronary artery without angina pectoris; N18.3 Chronic kidney disease, stage 3 (moderate); E78.5 Hyperlipidemia, unspecified; M06.9 Rheumatoid arthritis, unspecified; F32.9 Major depressive disorder, single episode, unspecified; Z95.1 Presence of aortocoronary bypass graft; F41.9 Anxiety disorder, unspecified; M19.90 Unspecified osteoarthritis, unspecified site; Z86.14 Personal history of Methicillin resistant Staphylococcus aureus infection; E10.42 Type 1 diabetes mellitus with diabetic polyneuropathy; E78.00 Pure hypercholesterolemia, unspecified; G25.81 Restless legs syndrome; G89.4 Chronic pain syndrome; J20.9 Acute bronchitis, unspecified; Z79.4 Long term (current) use of insulin; Z87.891 Personal history of nicotine dependence; B95.61 Methicillin susceptible Staphylococcus aureus infection as the cause of diseases classified elsewhere
CPT/HCPCS: 36415; 71010-TC; 73630-TC; 73718-TC; 80048-TC; 80053-TC; 80061-TC; 80202-TC; 82962-TC; 83605-TC; 83735-TC; 84100-TC; 84443-TC; 85025-TC; 85610-TC; 85730-TC; 87040-TC; 87070-TC; 87081-TC; A4216; A4606; A6402; A6403; J1170; J1815; J2185; J2250; J2405; J3010; J3370; J3490; J7050; J7060; J7512; Z7610

== ENCOUNTER 2016-05-28 10:55 | Outpatient (CLI) | payer MEDICARE, OTHER ==
[~2016-05-28 10:55] MED LIST changes: +ALBU6.7H IH; -CALC-108 PO; +CALC-263 PO; -CIPR500T5 PO; +DEXT50DI5 IV; -MAG30ORA PO; -MAGN400O6 PO; -METF500T4 PO; -MULT-659 PO; +MULT-70 PO; -ONDA-25 PO; -SULF1TAB48 PO
== END 2016-05-28 23:59 ==
LOC: WOU 10:55
PROVIDERS: ATTEND Podiatrist Foot & Ankle Surgery
DX: E11.621 Type 2 diabetes mellitus with foot ulcer (principal); L97.523 Non-pressure chronic ulcer of other part of left foot with necrosis of muscle; L03.116 Cellulitis of left lower limb; E11.42 Type 2 diabetes mellitus with diabetic polyneuropathy; B35.1 Tinea unguium; I25.10 Atherosclerotic heart disease of native coronary artery without angina pectoris; Z95.1 Presence of aortocoronary bypass graft; E11.51 Type 2 diabetes mellitus with diabetic peripheral angiopathy without gangrene; D46.9 Myelodysplastic syndrome, unspecified; M06.9 Rheumatoid arthritis, unspecified; Z86.14 Personal history of Methicillin resistant Staphylococcus aureus infection; Z79.899 Other long term (current) drug therapy; I11.0 Hypertensive heart disease with heart failure; I50.9 Heart failure, unspecified
CPT/HCPCS: 11043; 97605-TC; A6402; A6407

== ENCOUNTER 2016-06-03 09:05 | Outpatient (CLI) | payer MEDICARE, OTHER | END 2016-06-03 23:59 | LOC: WOU 09:05 | PROVIDERS: ATTEND Podiatrist Foot & Ankle Surgery | DX: E11.621 Type 2 diabetes mellitus with foot ulcer (principal); L97.422 Non-pressure chronic ulcer of left heel and midfoot with fat layer exposed; L03.116 Cellulitis of left lower limb; L03.115 Cellulitis of right lower limb; B95.61 Methicillin susceptible Staphylococcus aureus infection as the cause of diseases classified elsewhere; I25.10 Atherosclerotic heart disease of native coronary artery without angina pectoris; I11.0 Hypertensive heart disease with heart failure; I50.9 Heart failure, unspecified; Z95.1 Presence of aortocoronary bypass graft; M06.9 Rheumatoid arthritis, unspecified; D46.9 Myelodysplastic syndrome, unspecified; E11.51 Type 2 diabetes mellitus with diabetic peripheral angiopathy without gangrene | CPT/HCPCS: 11043; 97605; A6402; A6452; 11044 ==

== ENCOUNTER 2016-06-10 12:45 | Outpatient (CLI) | payer MEDICARE, OTHER | END 2016-06-10 23:59 | disposition home or self-care (01) | LOC: VASLAB 12:45 | PROVIDERS: ATTEND Surgery Vascular Surgery | DX: E11.621 Type 2 diabetes mellitus with foot ulcer (principal); L97.422 Non-pressure chronic ulcer of left heel and midfoot with fat layer exposed; Z98.890 Other specified postprocedural states; Z87.891 Personal history of nicotine dependence; Z86.14 Personal history of Methicillin resistant Staphylococcus aureus infection; R60.0 Localized edema; D46.9 Myelodysplastic syndrome, unspecified; M06.9 Rheumatoid arthritis, unspecified; I25.10 Atherosclerotic heart disease of native coronary artery without angina pectoris; Z95.1 Presence of aortocoronary bypass graft; Z79.899 Other long term (current) drug therapy; L03.116 Cellulitis of left lower limb | CPT/HCPCS: G0463 ==

== ENCOUNTER 2016-06-11 09:00 | Outpatient (CLI) | payer MEDICARE, OTHER | END 2016-06-11 23:59 | LOC: WOU 09:00 | PROVIDERS: ATTEND Podiatrist Foot & Ankle Surgery | DX: E11.621 Type 2 diabetes mellitus with foot ulcer (principal); L97.422 Non-pressure chronic ulcer of left heel and midfoot with fat layer exposed; R60.0 Localized edema; Z87.891 Personal history of nicotine dependence; D46.9 Myelodysplastic syndrome, unspecified; I25.10 Atherosclerotic heart disease of native coronary artery without angina pectoris; Z95.1 Presence of aortocoronary bypass graft; E11.51 Type 2 diabetes mellitus with diabetic peripheral angiopathy without gangrene; E78.5 Hyperlipidemia, unspecified; M06.9 Rheumatoid arthritis, unspecified; Z79.02 Long term (current) use of antithrombotics/antiplatelets | CPT/HCPCS: 11043; 97605; A6402 ==

== ENCOUNTER 2016-06-18 10:32 | Outpatient (CLI) | payer MEDICARE, OTHER | END 2016-06-18 23:59 | LOC: WOU 10:32 | PROVIDERS: ATTEND Podiatrist Foot & Ankle Surgery | DX: T81.31XD Disruption of external operation (surgical) wound, not elsewhere classified, subsequent encounter (principal); L03.116 Cellulitis of left lower limb; E11.621 Type 2 diabetes mellitus with foot ulcer; L97.423 Non-pressure chronic ulcer of left heel and midfoot with necrosis of muscle; E11.42 Type 2 diabetes mellitus with diabetic polyneuropathy; E11.52 Type 2 diabetes mellitus with diabetic peripheral angiopathy with gangrene; Z86.14 Personal history of Methicillin resistant Staphylococcus aureus infection; Z87.891 Personal history of nicotine dependence; M06.9 Rheumatoid arthritis, unspecified; D46.9 Myelodysplastic syndrome, unspecified; Z79.899 Other long term (current) drug therapy; E78.5 Hyperlipidemia, unspecified; I25.10 Atherosclerotic heart disease of native coronary artery without angina pectoris; I11.0 Hypertensive heart disease with heart failure; I50.9 Heart failure, unspecified; Z95.1 Presence of aortocoronary bypass graft; Z79.02 Long term (current) use of antithrombotics/antiplatelets; Z89.421 Acquired absence of other right toe(s) | CPT/HCPCS: 11043; 97605; A6402; G0463 ==

== ENCOUNTER 2016-06-25 09:50 | Outpatient (CLI) | payer MEDICARE, OTHER | END 2016-06-25 23:59 | LOC: WOU 09:50 | PROVIDERS: ATTEND Podiatrist Foot & Ankle Surgery | DX: E11.621 Type 2 diabetes mellitus with foot ulcer (principal); L97.422 Non-pressure chronic ulcer of left heel and midfoot with fat layer exposed; L03.116 Cellulitis of left lower limb; B95.61 Methicillin susceptible Staphylococcus aureus infection as the cause of diseases classified elsewhere; E11.42 Type 2 diabetes mellitus with diabetic polyneuropathy; D46.9 Myelodysplastic syndrome, unspecified; M06.9 Rheumatoid arthritis, unspecified; Z79.899 Other long term (current) drug therapy; Z87.891 Personal history of nicotine dependence; E11.51 Type 2 diabetes mellitus with diabetic peripheral angiopathy without gangrene; I25.10 Atherosclerotic heart disease of native coronary artery without angina pectoris; I11.0 Hypertensive heart disease with heart failure; I50.9 Heart failure, unspecified; Z95.1 Presence of aortocoronary bypass graft; Z79.02 Long term (current) use of antithrombotics/antiplatelets | CPT/HCPCS: 11043; A6402 ==

== ENCOUNTER 2016-07-02 13:04 | Outpatient (CLI) | payer MEDICARE, OTHER | END 2016-07-02 23:59 | LOC: WOU 13:04 | PROVIDERS: ATTEND Podiatrist Foot & Ankle Surgery | DX: E11.621 Type 2 diabetes mellitus with foot ulcer (principal); E11.42 Type 2 diabetes mellitus with diabetic polyneuropathy; R60.0 Localized edema; D46.9 Myelodysplastic syndrome, unspecified; M06.9 Rheumatoid arthritis, unspecified; Z79.899 Other long term (current) drug therapy; Z87.891 Personal history of nicotine dependence; E11.51 Type 2 diabetes mellitus with diabetic peripheral angiopathy without gangrene; I25.10 Atherosclerotic heart disease of native coronary artery without angina pectoris; I11.0 Hypertensive heart disease with heart failure; I50.9 Heart failure, unspecified; Z95.1 Presence of aortocoronary bypass graft; Z79.02 Long term (current) use of antithrombotics/antiplatelets; L97.523 Non-pressure chronic ulcer of other part of left foot with necrosis of muscle | CPT/HCPCS: 11043; A6402 ==

== ENCOUNTER 2016-07-09 11:45 | Outpatient (CLI) | payer MEDICARE, OTHER | END 2016-07-09 23:59 | disposition home or self-care (01) | LOC: WOU 11:45 | PROVIDERS: ATTEND Podiatrist Foot & Ankle Surgery | DX: E11.621 Type 2 diabetes mellitus with foot ulcer (principal); L97.422 Non-pressure chronic ulcer of left heel and midfoot with fat layer exposed; E11.610 Type 2 diabetes mellitus with diabetic neuropathic arthropathy; D53.9 Nutritional anemia, unspecified; Z85.6 Personal history of leukemia; Z79.899 Other long term (current) drug therapy; Z86.14 Personal history of Methicillin resistant Staphylococcus aureus infection; Z98.890 Other specified postprocedural states; E11.42 Type 2 diabetes mellitus with diabetic polyneuropathy | CPT/HCPCS: 11042; 73630-TC; A6402 ==

== ENCOUNTER 2016-07-16 12:30 | Outpatient (CLI) | payer MEDICARE | END 2016-07-16 23:59 | disposition home or self-care (01) | LOC: WOU 12:30 | PROVIDERS: ATTEND Podiatrist Foot & Ankle Surgery | DX: E11.621 Type 2 diabetes mellitus with foot ulcer (principal); L97.423 Non-pressure chronic ulcer of left heel and midfoot with necrosis of muscle; R11.2 Nausea with vomiting, unspecified; R60.0 Localized edema | CPT/HCPCS: 11043; A6402 ==

== ENCOUNTER 2016-07-23 12:30 | Outpatient (CLI) | payer MEDICARE, OTHER | END 2016-07-23 23:59 | disposition home or self-care (01) | LOC: WOU 12:30 | PROVIDERS: ATTEND Podiatrist Foot & Ankle Surgery | DX: E11.621 Type 2 diabetes mellitus with foot ulcer (principal); L97.423 Non-pressure chronic ulcer of left heel and midfoot with necrosis of muscle; C95.90 Leukemia, unspecified not having achieved remission; Z79.899 Other long term (current) drug therapy; R60.0 Localized edema | CPT/HCPCS: 11043; A6402 ==

== ENCOUNTER 2016-07-30 12:12 | Outpatient (CLI) | payer MEDICARE, OTHER | END 2016-07-30 23:59 | disposition home or self-care (01) | LOC: WOU 12:12 | PROVIDERS: ATTEND Podiatrist Foot & Ankle Surgery | DX: E11.621 Type 2 diabetes mellitus with foot ulcer (principal); L97.422 Non-pressure chronic ulcer of left heel and midfoot with fat layer exposed; C95.90 Leukemia, unspecified not having achieved remission; Z79.899 Other long term (current) drug therapy | CPT/HCPCS: 11042; A6402 ==

== ENCOUNTER 2016-08-01 09:52 | Emergency (ER) | payer MEDICARE, OTHER ==
[~2016-08-01] VITALS: Ht 167.6 cm; Wt 72.6 kg
[2016-08-01] MEDS ORDERED: IV NS 0.9% 1,000 ML ONE ×3 (10:21→12:19)
[2016-08-01] MEDS ORDERED: HYDROCODONE/APAP 5/325MG 1 EACH TABLET ONE (10:21)
[2016-08-01] MEDS ORDERED: IV SET PRIMARY PUMP SET 1 EA INFUS.SET MC ONE (10:21)
[2016-08-01 10:24] LABS: BASOPHILS # (AUTO) 0.3 /CMM (0.0-0.2); BASOPHILS % (AUTO) 3.1 % (0.0-2.0); EOSINOPHILS # (AUTO) 0.1 /CMM (0.0-0.7); EOSINOPHILS % (AUTO) 1.5 % (0.0-6.0); HEMATOCRIT 32 % (33-45); LYMPHOCYTES # (AUTO) 0.7 /CMM (0.8-4.8); MEAN CORPUSCULAR HEMOGLOBIN 39 PG (26.0-33.0); MEAN CORPUSCULAR HGB CONC 34 g/dl (31.0-36.0); MEAN CORPUSCULAR VOLUME 113 fL (82-100); MONOCYTES # (AUTO) 0.3 /CMM (0.1-1.30); MONOCYTES % (AUTO) 3.1 % (2.0-12.0); NEUTROPHILS # (AUTO) 6.9 /CMM (1.8-8.9); NEUTROPHILS % (AUTO) 84.3 % (43.0-81.0); PLATELET COUNT (AUTO) 106 /CMM (150-450); RDW COEFFICIENT OF VARIATION 14.1 (11.5-15.0); RED BLOOD CELL COUNT(AUTO) 2.84 MIL/uL (4.0-5.2); WHITE BLOOD COUNT (AUTO) 8.3 K/uL (4.3-11.0)
[2016-08-01] MEDS ORDERED: IV NS 0.9% 1,000 ML BAG IV ONE ×2 (10:30→12:00)
[2016-08-01] MEDS ORDERED: HYDROCODONE/APAP 5/325MG 1 EACH TABLET PO ONE (10:30)
[2016-08-01 10:39] LABS: CALCIUM, SERUM 9.4 mg/dL (8.5-10.1); CREATININE 1.3 mg/dL (0.6-1.3); POTASSIUM 4.8 mmol/L (3.5-5.1)
[2016-08-01 10:50] LABS: APPEARANCE,URINE Slightly Cloudy (CLEAR); BILIRUBIN,URINE Negative (NEGATIVE); BLOOD, URINE Trace-intact Ery/uL (NEGATIVE); COLOR,URINE Yellow (YELLOW); KETONES,URINE Negative (NEGATIVE); LEUKOCYTE ESTERASE ,URINE Small (NEGATIVE); NITRITE, URINE Negative (NEGATIVE); PROTEIN,URINE Negative (NEGATIVE); UROBILINOGEN,URINE 0.2 EU/dL (0.2)
[2016-08-01 10:52] LABS: UGLUCOSE 250 MG/DL mg/dL (NEGATIVE)
[2016-08-01] MEDS ORDERED: INSULIN REGULAR, HUMAN 100 UNIT/ML 10 ML VIAL SQ ONE (11:00)
[2016-08-01 11:07] LABS: RBC,URINE 0-3 /HPF (0-2)
[2016-08-01 11:08] LABS: ADD URINE CULTURE YES; BACTERIA,URINE Moderate /HPF (None Seen); SQUAMOUS EPITHELIAL CELL,UR Many /HPF (None Seen)
[2016-08-01 11:12] LABS: BAND % (MANUAL) 2 % (0.0-5.0); LYMPHOCYTES % (MANUAL) 10 % (16-48); NEUTROPHILS % (MANUAL) 84 (42-76)
[2016-08-01 11:13] LABS: EOSINOPHILS % (MANUAL) 1 % (0-4); MONOCYTES % (MANUAL) 3 % (0-11.0); PLATELET ESTIMATE ADEQUATE
[2016-08-01] MEDS ORDERED: INSULIN REGULAR, HUMAN 100 UNIT/ML 10 ML VIAL ONE ×2 (11:20→12:20)
[2016-08-01] MEDS ORDERED: IV SET PRIMARY 1 EA INFUS.SET MC ONE (11:47)
[2016-08-01] MEDS ORDERED: SECONDARY IV SET 1 EA INFUS.SET MC ONE (12:19)
--- NOTE | 2016-08-01 12:28 | NUR ---
VERIFY WITH IMANI FLETCHER 4 UNITS INSULIN
[2016-08-01] MEDS ORDERED: INSULIN REGULAR, HUMAN 100 UNIT/ML 10 ML VIAL IV ONE (12:30)
--- NOTE | 2016-08-01 13:15 | NUR ---
[facility]ED [facility], THEY WILL SEND A NURSE FOR DISCHARGE.
--- NOTE | 2016-08-01 13:16 | NUR ---
CHECKED BLOOD SUGAR 285, NOTIFIED , NO NEW ORDERS, RN NOTIFIED
--- NOTE | 2016-08-01 13:31 | NUR ---
IV removed. Catheter intact and site benign. Pressure and 4x4 applied to site. No bleeding noted.PT. VERBALIZED UNDERSTANDING OF AFTERCARE INSTRUCTIONS.Patient discharged to home in stable condition. Written and verbal after care instructions given. Patient verbalizes understanding of instruction.
[2016-08-01 13:32] VITALS: BP 145/59
== END 2016-08-01 13:32 | disposition home or self-care (01) ==
LOC: ER 09:56
DX: E86.0 Dehydration (principal); E10.65 Type 1 diabetes mellitus with hyperglycemia; I25.10 Atherosclerotic heart disease of native coronary artery without angina pectoris; I10 Essential (primary) hypertension; I73.9 Peripheral vascular disease, unspecified; R82.79 Other abnormal findings on microbiological examination of urine; E78.00 Pure hypercholesterolemia, unspecified; Z79.82 Long term (current) use of aspirin; Z79.4 Long term (current) use of insulin; Z88.0 Allergy status to penicillin; Z95.1 Presence of aortocoronary bypass graft; M06.9 Rheumatoid arthritis, unspecified; Z88.8 Allergy status to other drugs, medicaments and biological substances; G25.81 Restless legs syndrome
CPT/HCPCS: 36415; 80048; 81001; 82962 ×3; 85025; 87086; 96361; 96372; 96374; 99284; A4606; J1815 ×2; J7030 ×2; 81000-TC; Z7610

== ENCOUNTER 2016-08-06 12:25 | Outpatient (CLI) | payer MEDICARE, OTHER | END 2016-08-06 23:59 | disposition home or self-care (01) | LOC: WOU 12:25 | PROVIDERS: ATTEND Specialist | DX: E11.621 Type 2 diabetes mellitus with foot ulcer (principal); L97.422 Non-pressure chronic ulcer of left heel and midfoot with fat layer exposed; L03.116 Cellulitis of left lower limb; T81.31XD Disruption of external operation (surgical) wound, not elsewhere classified, subsequent encounter; Z86.14 Personal history of Methicillin resistant Staphylococcus aureus infection; M06.9 Rheumatoid arthritis, unspecified; Z79.899 Other long term (current) drug therapy; I25.10 Atherosclerotic heart disease of native coronary artery without angina pectoris; I11.0 Hypertensive heart disease with heart failure; I50.9 Heart failure, unspecified; Z95.1 Presence of aortocoronary bypass graft; Z87.891 Personal history of nicotine dependence; E11.51 Type 2 diabetes mellitus with diabetic peripheral angiopathy without gangrene; E78.5 Hyperlipidemia, unspecified; D46.9 Myelodysplastic syndrome, unspecified; Z79.02 Long term (current) use of antithrombotics/antiplatelets; Z79.01 Long term (current) use of anticoagulants | CPT/HCPCS: 11042; 87070-TC; 87186-TC; A6197; A6402 ==

== ENCOUNTER 2016-08-15 12:22 | Outpatient (CLI) | payer MEDICARE, OTHER | END 2016-08-15 23:59 | disposition home or self-care (01) | LOC: WOU 12:22 | PROVIDERS: ATTEND Podiatrist Foot & Ankle Surgery | DX: E11.621 Type 2 diabetes mellitus with foot ulcer (principal); L97.422 Non-pressure chronic ulcer of left heel and midfoot with fat layer exposed; L03.116 Cellulitis of left lower limb; B95.62 Methicillin resistant Staphylococcus aureus infection as the cause of diseases classified elsewhere; B96.20 Unspecified Escherichia coli [E. coli] as the cause of diseases classified elsewhere; B96.5 Pseudomonas (aeruginosa) (mallei) (pseudomallei) as the cause of diseases classified elsewhere; C95.90 Leukemia, unspecified not having achieved remission; Z79.899 Other long term (current) drug therapy; E11.51 Type 2 diabetes mellitus with diabetic peripheral angiopathy without gangrene; I25.10 Atherosclerotic heart disease of native coronary artery without angina pectoris; I11.0 Hypertensive heart disease with heart failure; I50.9 Heart failure, unspecified; Z95.1 Presence of aortocoronary bypass graft; Z87.891 Personal history of nicotine dependence; M06.9 Rheumatoid arthritis, unspecified; R60.0 Localized edema; Z89.421 Acquired absence of other right toe(s); E11.42 Type 2 diabetes mellitus with diabetic polyneuropathy; Z79.02 Long term (current) use of antithrombotics/antiplatelets | CPT/HCPCS: 11042; 87070; 87077; 87186 ×2; A6402; 87075-TC ==

== ENCOUNTER 2016-08-19 09:45 | Outpatient (CLI) | payer MEDICARE, OTHER | END 2016-08-19 23:59 | disposition home or self-care (01) | LOC: WOU 09:45 | PROVIDERS: ATTEND Podiatrist Foot & Ankle Surgery | DX: E11.621 Type 2 diabetes mellitus with foot ulcer (principal); L97.422 Non-pressure chronic ulcer of left heel and midfoot with fat layer exposed; L08.9 Local infection of the skin and subcutaneous tissue, unspecified; B95.62 Methicillin resistant Staphylococcus aureus infection as the cause of diseases classified elsewhere; B96.20 Unspecified Escherichia coli [E. coli] as the cause of diseases classified elsewhere; B96.5 Pseudomonas (aeruginosa) (mallei) (pseudomallei) as the cause of diseases classified elsewhere; Z87.891 Personal history of nicotine dependence; Z59.0 Homelessness; I25.10 Atherosclerotic heart disease of native coronary artery without angina pectoris; I11.0 Hypertensive heart disease with heart failure; Z95.1 Presence of aortocoronary bypass graft; C95.90 Leukemia, unspecified not having achieved remission; Z79.899 Other long term (current) drug therapy; E78.5 Hyperlipidemia, unspecified; M06.9 Rheumatoid arthritis, unspecified; D46.9 Myelodysplastic syndrome, unspecified | CPT/HCPCS: 11042; A6402 ==

== ENCOUNTER 2016-08-26 08:59 | Outpatient (CLI) | payer MEDICARE, OTHER | END 2016-08-26 23:59 | disposition home or self-care (01) | LOC: WOU 08:59 | PROVIDERS: ATTEND Surgery Vascular Surgery | DX: I73.9 Peripheral vascular disease, unspecified (principal) ==

== ENCOUNTER 2016-08-27 11:06 | Outpatient (CLI) | payer MEDICARE, OTHER | END 2016-08-27 23:59 | LOC: WOU 11:06 | PROVIDERS: ATTEND Podiatrist Foot & Ankle Surgery | DX: E11.621 Type 2 diabetes mellitus with foot ulcer (principal); L97.421 Non-pressure chronic ulcer of left heel and midfoot limited to breakdown of skin; L03.116 Cellulitis of left lower limb; B96.89 Other specified bacterial agents as the cause of diseases classified elsewhere; Z86.14 Personal history of Methicillin resistant Staphylococcus aureus infection; C95.90 Leukemia, unspecified not having achieved remission; Z79.899 Other long term (current) drug therapy; L60.3 Nail dystrophy; E11.40 Type 2 diabetes mellitus with diabetic neuropathy, unspecified; E11.51 Type 2 diabetes mellitus with diabetic peripheral angiopathy without gangrene; Z79.2 Long term (current) use of antibiotics; Z79.02 Long term (current) use of antithrombotics/antiplatelets; Z79.82 Long term (current) use of aspirin | CPT/HCPCS: 11042; 87070-TC; 87186-TC; A6402 ==

== ENCOUNTER 2016-09-03 10:14 | Outpatient (CLI) | payer MEDICARE, OTHER | END 2016-09-03 23:59 | disposition home or self-care (01) | LOC: WOU 10:14 | PROVIDERS: ATTEND Podiatrist Foot & Ankle Surgery | DX: E11.621 Type 2 diabetes mellitus with foot ulcer (principal); L97.421 Non-pressure chronic ulcer of left heel and midfoot limited to breakdown of skin; B95.62 Methicillin resistant Staphylococcus aureus infection as the cause of diseases classified elsewhere; B96.5 Pseudomonas (aeruginosa) (mallei) (pseudomallei) as the cause of diseases classified elsewhere; B96.20 Unspecified Escherichia coli [E. coli] as the cause of diseases classified elsewhere; C95.90 Leukemia, unspecified not having achieved remission; Z79.899 Other long term (current) drug therapy; I25.10 Atherosclerotic heart disease of native coronary artery without angina pectoris; I11.0 Hypertensive heart disease with heart failure; I50.9 Heart failure, unspecified; Z95.1 Presence of aortocoronary bypass graft; M06.9 Rheumatoid arthritis, unspecified; E11.65 Type 2 diabetes mellitus with hyperglycemia; Z79.02 Long term (current) use of antithrombotics/antiplatelets | CPT/HCPCS: 11042; 87070-TC; A6402 ==

== ENCOUNTER 2016-09-17 09:43 | Outpatient (CLI) | payer MEDICARE, OTHER | END 2016-09-17 23:59 | disposition home or self-care (01) | LOC: WOU 09:43 | PROVIDERS: ATTEND Podiatrist Foot & Ankle Surgery | DX: E11.621 Type 2 diabetes mellitus with foot ulcer (principal); L97.421 Non-pressure chronic ulcer of left heel and midfoot limited to breakdown of skin; E11.40 Type 2 diabetes mellitus with diabetic neuropathy, unspecified; Z86.14 Personal history of Methicillin resistant Staphylococcus aureus infection; E11.65 Type 2 diabetes mellitus with hyperglycemia; Z79.01 Long term (current) use of anticoagulants; Z79.899 Other long term (current) drug therapy | CPT/HCPCS: 11042; A6402 ==

== ENCOUNTER 2016-09-24 08:13 | Outpatient (CLI) | payer MEDICARE, OTHER | END 2016-09-24 23:59 | disposition home or self-care (01) | LOC: WOU 08:13 | PROVIDERS: ATTEND Podiatrist Foot & Ankle Surgery | DX: E11.621 Type 2 diabetes mellitus with foot ulcer (principal); L97.422 Non-pressure chronic ulcer of left heel and midfoot with fat layer exposed; L03.116 Cellulitis of left lower limb; L02.612 Cutaneous abscess of left foot; B95.62 Methicillin resistant Staphylococcus aureus infection as the cause of diseases classified elsewhere; B96.20 Unspecified Escherichia coli [E. coli] as the cause of diseases classified elsewhere; B96.5 Pseudomonas (aeruginosa) (mallei) (pseudomallei) as the cause of diseases classified elsewhere; E11.65 Type 2 diabetes mellitus with hyperglycemia; Z87.891 Personal history of nicotine dependence; C94.6 Myelodysplastic disease, not elsewhere classified; Z79.899 Other long term (current) drug therapy; I25.10 Atherosclerotic heart disease of native coronary artery without angina pectoris; I11.0 Hypertensive heart disease with heart failure; I50.9 Heart failure, unspecified; Z95.1 Presence of aortocoronary bypass graft; Z79.02 Long term (current) use of antithrombotics/antiplatelets; E78.5 Hyperlipidemia, unspecified; M06.9 Rheumatoid arthritis, unspecified; T81.31XD Disruption of external operation (surgical) wound, not elsewhere classified, subsequent encounter; L60.0 Ingrowing nail | CPT/HCPCS: 11042; A6402 ==

== ENCOUNTER 2016-10-03 08:00 | Outpatient (CLI) | payer MEDICARE, OTHER | END 2016-10-03 23:59 | disposition home or self-care (01) | LOC: WOU 08:00 | PROVIDERS: ATTEND Podiatrist Foot & Ankle Surgery | DX: E11.621 Type 2 diabetes mellitus with foot ulcer (principal); L97.421 Non-pressure chronic ulcer of left heel and midfoot limited to breakdown of skin; E11.51 Type 2 diabetes mellitus with diabetic peripheral angiopathy without gangrene; E11.42 Type 2 diabetes mellitus with diabetic polyneuropathy; B35.1 Tinea unguium; Z86.14 Personal history of Methicillin resistant Staphylococcus aureus infection; C94.6 Myelodysplastic disease, not elsewhere classified; I25.10 Atherosclerotic heart disease of native coronary artery without angina pectoris; I11.0 Hypertensive heart disease with heart failure; I50.9 Heart failure, unspecified; Z95.1 Presence of aortocoronary bypass graft; Z79.899 Other long term (current) drug therapy; Z79.02 Long term (current) use of antithrombotics/antiplatelets | CPT/HCPCS: 11042; A6402 ==

== ENCOUNTER 2016-10-08 08:00 | Outpatient (CLI) | payer MEDICARE, OTHER | END 2016-10-08 23:59 | disposition home or self-care (01) | LOC: WOU 08:00 | PROVIDERS: ATTEND Podiatrist Foot & Ankle Surgery | DX: E11.621 Type 2 diabetes mellitus with foot ulcer (principal); L97.421 Non-pressure chronic ulcer of left heel and midfoot limited to breakdown of skin; E11.42 Type 2 diabetes mellitus with diabetic polyneuropathy; Z86.14 Personal history of Methicillin resistant Staphylococcus aureus infection; R60.0 Localized edema; I89.0 Lymphedema, not elsewhere classified; E11.51 Type 2 diabetes mellitus with diabetic peripheral angiopathy without gangrene | CPT/HCPCS: 11042; A6402 ==

== ENCOUNTER 2016-10-15 08:00 | Outpatient (CLI) | payer MEDICARE, OTHER | END 2016-10-15 23:59 | LOC: WOU 08:00 | PROVIDERS: ATTEND Podiatrist Foot & Ankle Surgery | DX: E11.621 Type 2 diabetes mellitus with foot ulcer (principal); L97.421 Non-pressure chronic ulcer of left heel and midfoot limited to breakdown of skin; E11.40 Type 2 diabetes mellitus with diabetic neuropathy, unspecified; Z86.14 Personal history of Methicillin resistant Staphylococcus aureus infection; E11.51 Type 2 diabetes mellitus with diabetic peripheral angiopathy without gangrene; I25.10 Atherosclerotic heart disease of native coronary artery without angina pectoris; Z95.1 Presence of aortocoronary bypass graft; R60.0 Localized edema; B35.1 Tinea unguium; Z89.421 Acquired absence of other right toe(s); D46.9 Myelodysplastic syndrome, unspecified; M06.9 Rheumatoid arthritis, unspecified; Z79.02 Long term (current) use of antithrombotics/antiplatelets; Z79.82 Long term (current) use of aspirin; Z79.899 Other long term (current) drug therapy | CPT/HCPCS: 11042; A6402 ==

== ENCOUNTER 2016-10-24 08:55 | Outpatient (CLI) | payer MEDICARE, OTHER | END 2016-10-24 23:59 | disposition home or self-care (01) | LOC: WOU 08:55 | PROVIDERS: ATTEND Podiatrist Foot & Ankle Surgery | DX: E11.621 Type 2 diabetes mellitus with foot ulcer (principal); L97.422 Non-pressure chronic ulcer of left heel and midfoot with fat layer exposed; L84 Corns and callosities; E11.42 Type 2 diabetes mellitus with diabetic polyneuropathy; E11.51 Type 2 diabetes mellitus with diabetic peripheral angiopathy without gangrene; R60.0 Localized edema; D64.9 Anemia, unspecified | CPT/HCPCS: 11042; A6402 ×2 ==

== ENCOUNTER 2016-10-31 09:04 | Outpatient (CLI) | payer MEDICARE, OTHER | END 2016-10-31 23:59 | LOC: WOU 09:04 | PROVIDERS: ATTEND Podiatrist Foot & Ankle Surgery | DX: E11.621 Type 2 diabetes mellitus with foot ulcer (principal); L97.421 Non-pressure chronic ulcer of left heel and midfoot limited to breakdown of skin; E11.649 Type 2 diabetes mellitus with hypoglycemia without coma; Z79.02 Long term (current) use of antithrombotics/antiplatelets; Z79.899 Other long term (current) drug therapy; Z86.14 Personal history of Methicillin resistant Staphylococcus aureus infection; E11.42 Type 2 diabetes mellitus with diabetic polyneuropathy; D64.9 Anemia, unspecified | CPT/HCPCS: 11042; 82962-TC; A6402; G0463 ==

== ENCOUNTER 2016-11-04 12:45 | Outpatient (CLI) | payer MEDICARE, OTHER | END 2016-11-04 23:59 | disposition home or self-care (01) | LOC: VASLAB 12:45 | PROVIDERS: ATTEND Surgery Vascular Surgery | DX: Z09 Encounter for follow-up examination after completed treatment for conditions other than malignant neoplasm (principal); E11.621 Type 2 diabetes mellitus with foot ulcer; L97.421 Non-pressure chronic ulcer of left heel and midfoot limited to breakdown of skin; Z79.02 Long term (current) use of antithrombotics/antiplatelets; Z79.82 Long term (current) use of aspirin | CPT/HCPCS: A6402; G0463 ==

== ENCOUNTER 2017-07-31 09:43 | Outpatient (CLI) | payer MEDICARE, OTHER ==
[~2017-07-31 09:43] MED LIST changes: +ASPI-1169 PO; -ASPI81TA2 PO; -CYCL-343 PO; +CYCL10TA9 PO; -FERR-58 PO; +FERR325T24 PO; -HYDR-3326 PO; +HYDR-3974 PO; +MULT-594 PO; -MULT-70 PO; -ZOLP5TAB7 PO; +ZOLP5TAB8 PO
== END 2017-07-31 23:59 ==
LOC: WOU 09:43
PROVIDERS: ATTEND Podiatrist Foot & Ankle Surgery
DX: E11.621 Type 2 diabetes mellitus with foot ulcer (principal); L97.422 Non-pressure chronic ulcer of left heel and midfoot with fat layer exposed; L97.512 Non-pressure chronic ulcer of other part of right foot with fat layer exposed; L03.116 Cellulitis of left lower limb; M06.9 Rheumatoid arthritis, unspecified; E11.42 Type 2 diabetes mellitus with diabetic polyneuropathy; Z86.14 Personal history of Methicillin resistant Staphylococcus aureus infection; D46.9 Myelodysplastic syndrome, unspecified; E11.51 Type 2 diabetes mellitus with diabetic peripheral angiopathy without gangrene; I25.10 Atherosclerotic heart disease of native coronary artery without angina pectoris; Z95.1 Presence of aortocoronary bypass graft; I10 Essential (primary) hypertension
CPT/HCPCS: 11042; 87070-TC; 87075-TC; A6402

== ENCOUNTER 2017-08-07 10:03 | Outpatient (CLI) | payer MEDICARE, OTHER | END 2017-08-07 23:59 | LOC: WOU 10:03 | PROVIDERS: ATTEND Podiatrist Foot & Ankle Surgery | DX: E11.621 Type 2 diabetes mellitus with foot ulcer (principal); L97.512 Non-pressure chronic ulcer of other part of right foot with fat layer exposed; L97.422 Non-pressure chronic ulcer of left heel and midfoot with fat layer exposed; E11.40 Type 2 diabetes mellitus with diabetic neuropathy, unspecified; Z79.4 Long term (current) use of insulin; M06.9 Rheumatoid arthritis, unspecified; L03.116 Cellulitis of left lower limb; L90.9 Atrophic disorder of skin, unspecified; I10 Essential (primary) hypertension; D46.9 Myelodysplastic syndrome, unspecified; Z87.891 Personal history of nicotine dependence | CPT/HCPCS: 11042; A6402 ==

== ENCOUNTER 2017-08-14 10:13 | Outpatient (CLI) | payer MEDICARE, OTHER | END 2017-08-14 23:59 | disposition home health service (06) | LOC: WOU 10:13 | PROVIDERS: ATTEND Podiatrist Foot & Ankle Surgery | DX: E11.621 Type 2 diabetes mellitus with foot ulcer (principal); L97.512 Non-pressure chronic ulcer of other part of right foot with fat layer exposed; L97.422 Non-pressure chronic ulcer of left heel and midfoot with fat layer exposed; E11.42 Type 2 diabetes mellitus with diabetic polyneuropathy; E11.65 Type 2 diabetes mellitus with hyperglycemia; Z79.4 Long term (current) use of insulin; Z79.82 Long term (current) use of aspirin; D53.9 Nutritional anemia, unspecified | CPT/HCPCS: 11042; A6402 ==

== ENCOUNTER 2017-08-21 09:01 | Outpatient (CLI) | payer MEDICARE, OTHER | END 2017-08-21 23:59 | disposition home health service (06) | LOC: WOU 09:01 | PROVIDERS: ATTEND Podiatrist Foot & Ankle Surgery | DX: E11.621 Type 2 diabetes mellitus with foot ulcer (principal); L97.422 Non-pressure chronic ulcer of left heel and midfoot with fat layer exposed; E11.42 Type 2 diabetes mellitus with diabetic polyneuropathy; E11.65 Type 2 diabetes mellitus with hyperglycemia; Z79.4 Long term (current) use of insulin; Z86.14 Personal history of Methicillin resistant Staphylococcus aureus infection | CPT/HCPCS: 11042; A6402 ==

== ENCOUNTER 2017-09-04 08:40 | Outpatient (CLI) | payer MEDICARE, OTHER | END 2017-09-04 23:59 | LOC: WOU 08:40 | PROVIDERS: ATTEND Podiatrist Foot & Ankle Surgery | DX: E11.621 Type 2 diabetes mellitus with foot ulcer (principal); L97.429 Non-pressure chronic ulcer of left heel and midfoot with unspecified severity; E11.42 Type 2 diabetes mellitus with diabetic polyneuropathy; E11.610 Type 2 diabetes mellitus with diabetic neuropathic arthropathy; M21.70 Unequal limb length (acquired), unspecified site; Z79.4 Long term (current) use of insulin; Z79.899 Other long term (current) drug therapy | CPT/HCPCS: 11042; A6402 ==

== ENCOUNTER 2017-09-11 11:00 | Outpatient (CLI) | payer MEDICARE, OTHER | END 2017-09-11 23:59 | LOC: WOU 11:00 | PROVIDERS: ATTEND Podiatrist Foot & Ankle Surgery | DX: E11.621 Type 2 diabetes mellitus with foot ulcer (principal); L97.421 Non-pressure chronic ulcer of left heel and midfoot limited to breakdown of skin; L90.9 Atrophic disorder of skin, unspecified; M06.9 Rheumatoid arthritis, unspecified; R60.0 Localized edema; Z86.14 Personal history of Methicillin resistant Staphylococcus aureus infection | CPT/HCPCS: 11042; A6402 ==

== ENCOUNTER 2017-09-18 09:58 | Outpatient (CLI) | payer MEDICARE, OTHER | END 2017-09-18 23:59 | LOC: WOU 09:58 | PROVIDERS: ATTEND Podiatrist Foot & Ankle Surgery | DX: E11.621 Type 2 diabetes mellitus with foot ulcer (principal); L97.421 Non-pressure chronic ulcer of left heel and midfoot limited to breakdown of skin; E11.610 Type 2 diabetes mellitus with diabetic neuropathic arthropathy; Z79.4 Long term (current) use of insulin; M06.9 Rheumatoid arthritis, unspecified; G89.29 Other chronic pain; L90.9 Atrophic disorder of skin, unspecified; Z86.14 Personal history of Methicillin resistant Staphylococcus aureus infection; Z79.899 Other long term (current) drug therapy | CPT/HCPCS: 11042; A6402 ==

== ENCOUNTER 2017-10-06 10:05 | Outpatient (CLI) | payer OTHER | END 2017-10-06 23:59 | LOC: WOU 10:05 | PROVIDERS: ATTEND Podiatrist Foot & Ankle Surgery | DX: E11.610 Type 2 diabetes mellitus with diabetic neuropathic arthropathy (principal); Z86.31 Personal history of diabetic foot ulcer; E11.42 Type 2 diabetes mellitus with diabetic polyneuropathy; L90.9 Atrophic disorder of skin, unspecified | CPT/HCPCS: 82962-TC; A6402; G0463; Z7610 ==

== ENCOUNTER 2017-11-03 10:11 | Outpatient (CLI) | payer MEDICARE, OTHER | END 2017-11-03 23:59 | disposition home or self-care (01) | LOC: WOU 10:11 | PROVIDERS: ATTEND Podiatrist Foot & Ankle Surgery | DX: L84 Corns and callosities (principal); E11.42 Type 2 diabetes mellitus with diabetic polyneuropathy; E11.65 Type 2 diabetes mellitus with hyperglycemia; Z79.4 Long term (current) use of insulin; M06.9 Rheumatoid arthritis, unspecified; R26.9 Unspecified abnormalities of gait and mobility; M21.70 Unequal limb length (acquired), unspecified site; Z79.82 Long term (current) use of aspirin; Z79.891 Long term (current) use of opiate analgesic | CPT/HCPCS: G0463; Z7610 ==

== ENCOUNTER 2017-12-15 10:35 | Outpatient (CLI) | payer MEDICARE, OTHER | END 2017-12-15 23:59 | LOC: WOU 10:35 | PROVIDERS: ATTEND Podiatrist Foot & Ankle Surgery | DX: E11.621 Type 2 diabetes mellitus with foot ulcer (principal); L97.518 Non-pressure chronic ulcer of other part of right foot with other specified severity; E11.42 Type 2 diabetes mellitus with diabetic polyneuropathy; M06.9 Rheumatoid arthritis, unspecified; R26.9 Unspecified abnormalities of gait and mobility; M21.70 Unequal limb length (acquired), unspecified site; I25.10 Atherosclerotic heart disease of native coronary artery without angina pectoris; I11.0 Hypertensive heart disease with heart failure; I50.9 Heart failure, unspecified; E78.5 Hyperlipidemia, unspecified; Z87.891 Personal history of nicotine dependence; Z95.1 Presence of aortocoronary bypass graft | CPT/HCPCS: A6402; G0463; Z7610 ==

== ENCOUNTER 2017-12-22 10:00 | Outpatient (CLI) | payer MEDICARE, OTHER | END 2017-12-22 23:59 | disposition home or self-care (01) | LOC: WOU 10:00 | PROVIDERS: ATTEND Podiatrist Foot & Ankle Surgery | DX: Z09 Encounter for follow-up examination after completed treatment for conditions other than malignant neoplasm (principal); Z86.31 Personal history of diabetic foot ulcer; E11.610 Type 2 diabetes mellitus with diabetic neuropathic arthropathy; R60.9 Edema, unspecified; Z98.62 Peripheral vascular angioplasty status; Z95.1 Presence of aortocoronary bypass graft; Z89.421 Acquired absence of other right toe(s) | CPT/HCPCS: G0463; Z7610 ==

== ENCOUNTER 2018-01-27 12:49 | Outpatient (CLI) | payer MEDICARE, OTHER | END 2018-01-27 23:59 | disposition home health service (06) | LOC: WOU 12:49 | PROVIDERS: ATTEND Podiatrist Foot & Ankle Surgery | DX: E11.621 Type 2 diabetes mellitus with foot ulcer (principal); L97.422 Non-pressure chronic ulcer of left heel and midfoot with fat layer exposed; L97.522 Non-pressure chronic ulcer of other part of left foot with fat layer exposed; L97.518 Non-pressure chronic ulcer of other part of right foot with other specified severity; E11.42 Type 2 diabetes mellitus with diabetic polyneuropathy; L03.116 Cellulitis of left lower limb; M06.9 Rheumatoid arthritis, unspecified; M21.70 Unequal limb length (acquired), unspecified site; B35.1 Tinea unguium; I25.10 Atherosclerotic heart disease of native coronary artery without angina pectoris; Z95.1 Presence of aortocoronary bypass graft; E11.51 Type 2 diabetes mellitus with diabetic peripheral angiopathy without gangrene; C94.6 Myelodysplastic disease, not elsewhere classified; I11.0 Hypertensive heart disease with heart failure; I50.9 Heart failure, unspecified; Z79.899 Other long term (current) drug therapy; Z79.82 Long term (current) use of aspirin; Z79.4 Long term (current) use of insulin; Z86.14 Personal history of Methicillin resistant Staphylococcus aureus infection | CPT/HCPCS: 11042; 11043; A6402; Z7610 ==

== ENCOUNTER 2018-02-03 12:43 | Outpatient (CLI) | payer MEDICARE, OTHER ==
[~2018-02-03 12:43] MED LIST changes: +ISON300T19 PO; -ISON300T4 PO
== END 2018-02-03 23:59 ==
LOC: WOU 12:43
PROVIDERS: ATTEND Podiatrist Foot & Ankle Surgery
DX: E11.621 Type 2 diabetes mellitus with foot ulcer (principal); L97.422 Non-pressure chronic ulcer of left heel and midfoot with fat layer exposed; L97.522 Non-pressure chronic ulcer of other part of left foot with fat layer exposed; L97.518 Non-pressure chronic ulcer of other part of right foot with other specified severity; L03.116 Cellulitis of left lower limb; E11.42 Type 2 diabetes mellitus with diabetic polyneuropathy; M21.70 Unequal limb length (acquired), unspecified site; Z86.14 Personal history of Methicillin resistant Staphylococcus aureus infection; Z79.4 Long term (current) use of insulin
CPT/HCPCS: 11042; A6402; Z7610

== ENCOUNTER 2018-04-02 09:32 | Outpatient (CLI) | payer MEDICARE, OTHER | END 2018-04-02 23:59 | LOC: WOU 09:32 | PROVIDERS: ATTEND Podiatrist Foot & Ankle Surgery | DX: E11.621 Type 2 diabetes mellitus with foot ulcer (principal); L97.422 Non-pressure chronic ulcer of left heel and midfoot with fat layer exposed; L97.521 Non-pressure chronic ulcer of other part of left foot limited to breakdown of skin; E11.42 Type 2 diabetes mellitus with diabetic polyneuropathy; E11.51 Type 2 diabetes mellitus with diabetic peripheral angiopathy without gangrene; Z79.4 Long term (current) use of insulin; Z79.82 Long term (current) use of aspirin; Z86.14 Personal history of Methicillin resistant Staphylococcus aureus infection | CPT/HCPCS: 11042; A6402; Z7610 ==

== ENCOUNTER 2018-04-27 09:15 | Outpatient (CLI) | payer MEDICARE, OTHER | END 2018-04-27 23:59 | LOC: WOU 09:15 | PROVIDERS: ATTEND Podiatrist Foot & Ankle Surgery | DX: E11.621 Type 2 diabetes mellitus with foot ulcer (principal); L97.422 Non-pressure chronic ulcer of left heel and midfoot with fat layer exposed; L97.512 Non-pressure chronic ulcer of other part of right foot with fat layer exposed; I73.9 Peripheral vascular disease, unspecified; Z79.82 Long term (current) use of aspirin; Z79.4 Long term (current) use of insulin; Z79.899 Other long term (current) drug therapy | CPT/HCPCS: 11042; A6402; Z7610 ==